=== PATIENT | male | born 1965 | race Caucasian/White ===

== ENCOUNTER 2023-03-15 13:49 | Inpatient (IN) ==
[2023-03-15 15:14] LABS: Basophils # (auto) 0.02 K/uL (0-0.2); Basophils % (auto) 0.3 %; Eosinophils # (auto) 0.32 K/uL (0-0.50); Eosinophils % (auto) 4.5 %; Hematocrit (blood only) 44.3 % (42.0-52.0); Hemoglobin 14.8 g/dl (14.0-18.0); Immature Granulocytes # (auto) 0.03 K/uL (0.01-0.20); Immature Granulocytes % (auto) 0.4 %; Lymphocytes # (auto) 1.66 K/uL (1.2-3.4); Lymphocytes % (auto) 23.1 %; Mean Corpuscular Hemoglobin 32.9 pg (25.0-34.0); Mean Corpuscular Hgb Conc 33.4 g/dL (32.0-36.0); Mean Corpuscular Volume 98.4 fL (80.0-100.0); Mean Platelet Volume 9.3 fL (9.4-12.4); Monocytes # (auto) 0.62 K/uL (0.11-0.59); Monocytes % (auto) 8.6 %; Neutrophils # (auto) 4.54 K/uL (1.40-6.50); Neutrophils % (auto) 63.1 %; Platelet Count 278 K/uL (130-400); RDW Coefficient of Variation 12.4 % (11.5-14.5); RDW Standard Deviation 44.6 fL (36.4-46.3); White Blood Count 7.19 K/ul (4.8-10.8)
[2023-03-15 15:19] LABS: Albumin Globulin Ratio 0.9 (0.9-2); Albumin Level 3.9 gm/dl (3.4-5.0); BUN Creatinine Ratio 10.8 (10-20); Bilirubin,Total 0.3 mg/dl (0.2-1.0); Creatinine Clr Calc Pharmacy 97.4 ml/min; Est GFR (African American) 93.5 ml/min; Est GFR (Non-African American) 80.6 ml/min; Globulin 4.3 gm/dl (2.5-4.0); Potassium 3.9 mmol/L (3.5-5.1); Total Protein 8.2 gm/dl (6.0-8.3)
--- NOTE | 2023-03-15 15:52 | Emergency Department Note ---
Impression & Plan Osteomyelitis of right foot, Cellulitis of right leg, Wound of right foot, Tobacco use disorder ED Provider Note NAME: JOHANA IBRAHIM AGE: 57 SEX: M : 1965 ARRIVES VIA: Walk-In INFORMANT: Patient, ED PROVIDER(S): Miguel Sanchez MD CHIEF COMPLAINT: Left foot infection, swelling, redness MEDICAL DECISION MAKING: Patient presents for left foot infection associated swelling and redness. The patient was noted to have maggots with in the intertriginous webspaces of the left foot. Patient does have maceration noted as well. Given this with his chronic left lower extremity swelling and redness do believe the patient would benefit from inpatient treatment. The patient's initial blood work is grossly unremarkable with a normal white count. The patient was treated with vancomycin and Zosyn and ordered a left foot x-ray. There do appear to be bony erosions noted on the foot x-ray. I did speak with the on-call hospital service Santa Minaya PA-C and the patient was admitted by Dr. Rudolph. I also did speak with on-call podiatry Dr. Garzon did evaluate the patient at the bedside. He did relate that one of the areas between the toes did probe to bone and he did send a wound culture. Prior /Outside records reviewed: None Differential diagnosis: Cellulitis, osteomyelitis, abscess, MRSA infection, DVT, necrotizing fasciitis, dermatitis, drug eruption, allergic reaction, as well as other pathologies. Diagnostics, as interpreted by me: ECG: Normal sinus rhythm, rate of 60, normal intervals normal axis no ST elevations. Cardiac monitoring: An order was placed for continuous cardiac monitoring. The monitor shows a rate of 67 with sinus rhythm. Patient was placed on pulse oximetry Medical decision rules: None Imaging studies: See below I did review the patient's plain x-ray of the left foot. This does appear to show erosive changes as well as fractures. Concerning for osteomyelitis HPI: Patient presents due to concern for left foot pain and associated swelling. The patient states that he has had this ongoing for about 1-1/2 months. The patient does have chronic left lower extremity cellulitis and redness which has been ongoing for approximate 10 years he states. The patient states that he has not had any recent antibiotics for his left lower extremity in some time. The patient does smoke tobacco but denies any alcohol or drug use. Patient does not believe that he is a diabetic. Patient denies any falls or trauma. The patient states that he was going to work and noticed that he had a cut a portion of his shoe off to accommodate his foot as it was continued to swell. Patient denies any chest pains or shortness of breath. No nausea vomiting or diarrhea PAST MEDICAL HISTORY: See Below PAST SURGICAL HISTORY: See Below SOCIAL HISTORY: See Below HOME MEDICATIONS: See Below ALLERGIES: See Below VITALS: See Below PHYSICAL EXAMINATION: GENERAL: NAD, wearing glasses, non-toxic. EYE EXAM: Normal conjunctiva. PERRL, no anisocoria and EOM's grossly intact w/o pain. Oropharynx: Poor dentition. NECK: Supple, no nuchal rigidity, no adenopathy, non-tender. No signs of meningismus. FROM of the neck with good chin to chest and neck extension. No stridor. LUNGS: Clear to auscultation. Normal chest wall mechanics. HEART: NSR, no MRG. ABDOMEN: Abdomen soft, non-tender, no masses, no rebound or guarding. BACK: No CVA TTP. SKIN: No rashes and no bruising. UPPER EXTREMITIES: Upper extremities are grossly normal. LOWER EXTREMITIES: Left lower extremity swelling and redness from the mid alex down with more significant swelling to the left foot, maggots noted within the intertriginous webspaces and associated maceration, no crepitus noted. NEURO EXAM: A&O x3, cranial nerves II-XII grossly intact, normal speech, moves all 4 extremities. Past Med/Surg History Medical History Alcohol use disorder Tobacco use disorder Uncontrolled hypertension Surgical History No significant past surgical history Family History Father Stroke Mother Breast cancer Social History Smoking Status: Current every day smoker Cigarettes Per Day: 1.5 ppd; Second Hand Exposure: No; Do You Dip or Chew Tobacco: No; Hx Alcohol Use: Yes Alcohol type: hard liquor Alcohol Intake Frequency Comment: 4-5 shots of rum daily Hx Substance Use: No Preferred Language: Bulgarian Communication Ability: Effective Newswriter Required: No Beliefs That Will Affect Care: None Current Living Situation: Alone Other Information That Helps Us Care for You: No Feels Safe at Home: Yes Safety Concerns: Feels Safe At This Time Assistive Devices: Glasses Allergies Allergies Allergy/AdvReac Type Severity Reaction Status Date / Time house dust Allergy Intermediate SNEEZING, Verified 03/15/23 15:57 CONGESTION Home Meds Home Medications Medication Instructions Recorded Confirmed acetaminophen 500 mg tablet 1,000 mg PO DIRECTED PRN Pain 03/15/23 03/15/23 (Tylenol Extra Strength) ibuprofen 200 mg tablet (Advil) 400 mg PO DIRECTED PRN Pain 03/15/23 03/15/23 Results & Data (ED) Vital Signs Vital Signs - 24 hr 03/15/23 13:53 03/15/23 16:20 03/15/23 17:00 Temperature 36.8 C Temperature Source Temporal Artery Scan Pulse Rate 85 60 Respiratory Rate 22 16 Respiratory Effort / Characteristics Non-Labored Spontaneous Respiratory Depth Normal Respiratory Pattern Regular Blood Pressure 175/97 H Blood Pressure [Right Arm] 155/94 H Blood Pressure Mean 123 Blood Pressure Mean [Right Arm] 114 Blood Pressure Position Sitting Pulse Oximetry 98 98 Oxygen Delivery Method Room Air Room Air Sepsis Recent Fever Within 48 Hours No Sepsis New/Unexplained Change in Mental Status No Sepsis Action Taken by Nursing No Action Required Home Medications Current Medication List: was personally reviewed by me Laboratory Data Attestation: I reviewed the patient's lab results. 03/15/23 14:37 03/15/23 14:37 Lab Results 03/15/23 03/15/23 03/15/23 Range/Units 14:37 14:37 14:37 WBC 7.19 (4.8-10.8) K/ul RBC 4.50 L (4.70-6.10) M/uL Hgb 14.8 (14.0-18.0) g/dl Hct 44.3 (42.0-52.0) % MCV 98.4 (80.0-100.0) fL MCH 32.9 (25.0-34.0) pg MCHC 33.4 (32.0-36.0) g/dL RDW Std Deviation 44.6 (36.4-46.3) fL RDW Coeff of Hillary 12.4 (11.5-14.5) % Plt Count 278 (130-400) K/uL MPV 9.3 L (9.4-12.4) fL Immature Gran % (Auto) 0.4 % Neut % (Auto) 63.1 % Lymph % (Auto) 23.1 % Kay % (Auto) 8.6 % Eos % (Auto) 4.5 % Baso % (Auto) 0.3 % Neut # (Auto) 4.54 (1.40-6.50) K/uL Lymph # (Auto) 1.66 (1.2-3.4) K/uL Kay # (Auto) 0.62 H (0.11-0.59) K/uL Eos # (Auto) 0.32 (0-0.50) K/uL Baso # (Auto) 0.02 (0-0.2) K/uL Immature Gran # (Auto) 0.03 (0.01-0.20) K/uL ESR (0-20) mm/hr Sodium 139 (136-145) mmol/L Potassium 3.9 (3.5-5.1) mmol/L Chloride 106 (98-107) mmol/L Carbon Dioxide 28 (21-32) mmol/L Anion Gap 5 (3-11) BUN 11 (6-23) mg/dl Creatinine 1.02 (0.6-1.4) mg/dl Est Cr Clr Drug Dosing 97.4 ml/min Est GFR ( Amer) 93.5 ml/min Est GFR (Non-Af Amer) 80.6 ml/min BUN/Creatinine Ratio 10.8 (10-20) Glucose 109 H (70-99(Fasting)) mg/dl Calcium 9.0 (8.6-10.3) mg/dl Total Bilirubin 0.3 (0.2-1.0) mg/dl AST 17 (13-39) U/L ALT 13 (7-52) U/L Alkaline Phosphatase 87 (34-104) U/L C-Reactive Protein 4.45 H (0-0.5) mg/dl Total Protein 8.2 (6.0-8.3) gm/dl Albumin 3.9 (3.4-5.0) gm/dl Globulin 4.3 H (2.5-4.0) gm/dl Albumin/Globulin Ratio 0.9 (0.9-2) Procalcitonin 0.06 (0-0.5) ng/ml SARS-CoV-2, RNA, NAAT (NEGATIVE) 03/15/23 03/15/23 Range/Units 14:37 17:00 WBC (4.8-10.8) K/ul RBC (4.70-6.10) M/uL Hgb (14.0-18.0) g/dl Hct (42.0-52.0) % MCV (80.0-100.0) fL MCH (25.0-34.0) pg MCHC (32.0-36.0) g/dL RDW Std Deviation (36.4-46.3) fL RDW Coeff of Hillary (11.5-14.5) % Plt Count (130-400) K/uL MPV (9.4-12.4) fL Immature Gran % (Auto) % Neut % (Auto) % Lymph % (Auto) % Kay % (Auto) % Eos % (Auto) % Baso % (Auto) % Neut # (Auto) (1.40-6.50) K/uL Lymph # (Auto) (1.2-3.4) K/uL Kay # (Auto) (0.11-0.59) K/uL Eos # (Auto) (0-0.50) K/uL Baso # (Auto) (0-0.2) K/uL Immature Gran # (Auto) (0.01-0.20) K/uL ESR 72 H (0-20) mm/hr Sodium (136-145) mmol/L Potassium (3.5-5.1) mmol/L Chloride (98-107) mmol/L Carbon Dioxide (21-32) mmol/L Anion Gap (3-11) BUN (6-23) mg/dl Creatinine (0.6-1.4) mg/dl Est Cr Clr Drug Dosing ml/min Est GFR ( Amer) ml/min Est GFR (Non-Af Amer) ml/min BUN/Creatinine Ratio (10-20) Glucose (70-99(Fasting)) mg/dl Calcium (8.6-10.3) mg/dl Total Bilirubin (0.2-1.0) mg/dl AST (13-39) U/L ALT (7-52) U/L Alkaline Phosphatase (34-104) U/L C-Reactive Protein (0-0.5) mg/dl Total Protein (6.0-8.3) gm/dl Albumin (3.4-5.0) gm/dl Globulin (2.5-4.0) gm/dl Albumin/Globulin Ratio (0.9-2) Procalcitonin (0-0.5) ng/ml SARS-CoV-2, RNA, NAAT NEGATIVE (NEGATIVE) Administered Medications Amlodipine Besylate (Amlodipine Besylate 5 Mg Tab) 5 mg PO HS [facility] Stop: 04/14/23 21:39 Last Admin: 03/15/23 22:09 Dose: 5 mg Documented By: LOIDA Folic Acid (Folic Acid 1 Mg Tab) 1 [facility] Stop: 04/15/23 08:59 Last Admin: 03/16/23 07:53 Dose: 1 mg Documented By: NICHOLE Piperacillin Sod/Tazobactam (Sod 4.5 gm/ Dextrose) 120 mls @ 30 mls/hr IV Q8H [facility]; Protocol Stop: 03/23/23 01:59 Last Infusion: 03/16/23 08:40 Dose: 0 mls/hr Documented By: Admin: 03/16/23 04:01 Dose: 30 mls/hr Documented By: LOIDA Vancomycin HCl 1,500 mg/ (Sodium Chloride) 530 mls @ 200 mls/hr IV Q12H [facility] Stop: 03/17/23 17:30 Last Admin: 03/16/23 09:25 Dose: 200 mls/hr Documented By: NICHOLE Miscellaneous (Remove Nicoderm Patch) 1 each N/A DAILY@0859 [facility] Stop: 04/15/23 08:58 Last Admin: 03/16/23 07:50 Dose: 1 each Documented By: NICHOLE Nicotine (Nicotine 21 Mg/24 Hr Tdsy) 21 mg TD [facility] Stop: 04/15/23 08:59 Last Admin: 03/16/23 07:51 Dose: 21 mg Documented By: NICHOLE Thiamine HCl (Thiamine Hcl 100 Mg Tab) 100 mg PO QAJIM [facility] Stop: 04/15/23 08:59 Last Admin: 03/16/23 07:53 Dose: 100 mg Documented By: NICHOLE Discontinued Medications Gabapentin (Gabapentin 600 Mg Tab) 600 mg PO Q6H [facility] Stop: 03/16/23 06:01 Last Admin: 03/16/23 05:00 Dose: 600 mg Documented By: Admin: 03/16/23 00:19 Dose: 600 mg Documented By: LOIDA Gabapentin (Gabapentin 600 Mg Tab) 1,200 mg PO NOW STA Stop: 03/15/23 17:02 Last Admin: 03/15/23 17:57 Dose: 1,200 mg Documented By: MAXIMUS Gadobutrol (Gadobutrol 65ml Vial) 11 ml IV ONCE ONE Stop: 03/16/23 00:01 Last Admin: 03/16/23 00:01 Dose: 11 ml Documented By: REE Vancomycin HCl 2,750 mg/ (Sodium Chloride) 555 mls @ 200 mls/hr IV NOW ONE Stop: 03/15/23 18:55 Last Admin: 03/15/23 17:26 Dose: 200 mls/hr Documented By: MAXIMUS Piperacillin Sod/Tazobactam (Sod 4.5 gm/ Dextrose) 120 mls @ 240 mls/hr IV NOW ONE; Protocol Stop: 03/15/23 21:14 Last Infusion: 03/15/23 22:04 Dose: 0 mls/hr Documented By: Admin: 03/15/23 21:33 Dose: 240 mls/hr Documented By: LOIDA Nicotine (Nicotine 21 Mg/24 Hr Tdsy) 21 mg TD ONE STA Stop: 03/15/23 17:01 Last Admin: 03/15/23 17:57 Dose: 21 mg Documented By: MAXIMUS Imaging Data Radiologist's Impression: Foot MRI 03/15/23 17:02 Exam(s): MRI LEFT FOOT W/WO Contrast IV Amt: 11cc gadavist EXAM: MR Left Lower Extremity Without and With Intravenous Contrast, Foot CLINICAL HISTORY: Reason for exam: eval for osteomyelitis. TECHNIQUE: Multiplanar magnetic resonance images of the left foot without and with intravenous contrast. CONTRAST: Patient received 11cc gadavist of IV contrast COMPARISON: No relevant prior studies available. FINDINGS: Soft tissue ulcer/cellulitis involving the second toe. Severe osteomyelitis of the entire second toe, with erosive changes throughout the entire toe including the metatarsal head which is fragmented. Soft tissue ulcer/cellulitis involving the third toe. Severe osteomyelitis of the entire third toe, with erosive changes throughout the entire toe including resorption of the third metatarsal head. Edema extends into the third metatarsal diaphysis. Soft tissue ulcer/cellulitis involving the fifth toe. Severe osteomyelitis of the fifth toe, with erosive changes throughout the middle and distal phalanx. Severe degenerative changes of the first MTP. Impression: Severe osteomyelitis of the second, third, and fifth rays, as described. Electronically signed by: Jean Carlos Lopez MD 03/16/23 00:40 AM Foot X-Ray 03/15/23 16:16 LEFT FOOT 3 VIEWS CLINICAL HISTORY: Cellulitis. Swelling. FINDINGS: 3 views of the left foot are obtained. No prior studies are available for comparison at the time of dictation. The skeletal structures are osteopenic. There is an acute appearing displaced fracture through the distal shaft of the fifth proximal phalanx. Erosive destructive change is seen at the third metatarsophalangeal joint. This is highly suspicious for osteomyelitis. Erosive permeative changes also seen of the fifth proximal phalanx. There is age- indeterminate erosive change involving the tuft of the second distal phalanx and the base of the second proximal phalanx. There are numerous tiny bony fragments throughout the second and third toes. Advanced osteoarthritic changes seen at the first metatarsophalangeal joint. Milder degenerative changes seen throughout the midfoot. There is a large plantar heel spur. Diffuse soft tissue edema is noted throughout the forefoot. There are tiny foci of gas within the fifth toe. IMPRESSION: 1. There is an acute appearing displaced fracture through the head of the fifth proximal phalanx. This may be pathologic. 2. Erosive change at the third metatarsophalangeal joint as well as permeative change in the fifth proximal phalanx are highly suspicious for osteomyelitis. There is age indeterminate erosive change involving the tuft of the second distal phalanx and the base of the second proximal phalanx. Correlate with any prior outside imaging studies. 3. Diffuse soft tissue edema throughout the foot suggests cellulitis. Correlate clinically. 4. Degenerative change and large plantar heel spur as above. Dictated: 03/15/2023 6:17 PM Transcribed: 03/15/2023 6:33 PM Lana [id number] BRITTANEY_Candido [id number] Electronically signed by: Humberto Huber M.D. 03/15/2023 7:06 PM Foot MRI 03/15/23 17:02 Exam(s): MRI LEFT FOOT W/WO Contrast IV Amt: 11cc gadavist EXAM: MR Left Lower Extremity Without and With Intravenous Contrast, Foot CLINICAL HISTORY: Reason for exam: eval for osteomyelitis. TECHNIQUE: Multiplanar magnetic resonance images of the left foot without and with intravenous contrast. CONTRAST: Patient received 11cc gadavist of IV contrast COMPARISON: No relevant prior studies available. FINDINGS: Soft tissue ulcer/cellulitis involving the second toe. Severe osteomyelitis of the entire second toe, with erosive changes throughout the entire toe including the metatarsal head which is fragmented. Soft tissue ulcer/cellulitis involving the third toe. Severe osteomyelitis of the entire third toe, with erosive changes throughout the entire toe including resorption of the third metatarsal head. Edema extends into the third metatarsal diaphysis. Soft tissue ulcer/cellulitis involving the fifth toe. Severe osteomyelitis of the fifth toe, with erosive changes throughout the middle and distal phalanx. Severe degenerative changes of the first MTP. Impression: Severe osteomyelitis of the second, third, and fifth rays, as described. Electronically signed by: Jean Carlos Lopez MD 03/16/23 00:40 AM Venous Doppler Study 03/15/23 17:02 ULTRASOUND LEFT LOWER EXTREMITY VENOUS CLINICAL HISTORY: Left leg swelling and erythema. COMPARISON STUDY: Left lower extremity venous ultrasound dated 03/15/2013. TECHNIQUE: Real-time, grayscale, and color Doppler sonography of the deep veins of the left lower extremity was performed from the inguinal crease to the calf. Compression and augmentation were utilized. FINDINGS: There is no sonographic evidence of deep venous thrombosis identified in the left lower extremity. The common femoral, superficial femoral, and popliteal veins are patent and normally compressible. The greater saphenous vein and the profunda femoris vein at the junction with the common femoral vein are clear. The visualized calf veins are patent. Enlarged left inguinal lymph nodes are reactive. IMPRESSION: 1 There is no sonographic evidence of deep venous thrombosis identified in the left lower extremity. 2. Enlarged left inguinal lymph nodes are likely reactive. Correlate clinically. ACT 112: Negative or not required by law. Electronically signed by: Humberto Huber M.D. 03/15/2023 7:30 PM Discharge Plan Visit Data Chief Complaint: Foot Injury/Pain Stated Complaint: L FOOT PAIN ED Provider: Miguel Sanchez Discharge Problem: Osteomyelitis of right foot, Cellulitis of right leg, Wound of right foot, Tobacco use disorder Patient Disposition: Admitted As Inpatient Discharge Instructions Interventions: ED Discharge Assessment Last Done: 03/15/23 20:07
[2023-03-15] MEDS ORDERED: VANCOMYCIN CONSULT ACTIVE PRN (16:09)
[2023-03-15] MEDS ORDERED: VANCOMYCIN HCL 2,750 MG in SODIUM CHLORIDE 0.9% 500 ML IV ONE (16:09)
--- NOTE | 2023-03-15 16:48 | History & Physical Report ---
Date of Service March 15, 2023 Assessment & Plan (1) Wound of left foot: (2) Cellulitis of left foot: Plan: This is a 57yo M with a PMH of uncontrolled HTN and no other known medical problems who presents with L foot wound and LLE cellulitis. Ongoing RLE cellulitis with worsening pain and swelling to R foot wound over past 2 months Patient noncompliant patient, does not follow with a PCP or take scheduled medications Afebrile, no leukocytosis, ESR 72, CRP 4.45, procal negative Foot XR with 1. There is an acute appearing displaced fracture through the head of the fifth proximal phalanx. This may be pathologic. 2. Erosive change at the third metatarsophalangeal joint as well as permeative change in the fifth proximal phalanx are highly suspicious for osteomyelitis. 3. Diffuse soft tissue edema throughout the foot suggests cellulitis. Correlate clinically. 4. Degenerative change and large plantar heel spur as above. Evaluated by Dr. Garzon and discussed - feels exam is consistent with osteomyelitis. Recommends MRI foot RLE edema noted as well - obtaining venous doppler to rule out DVT Continue broad spectrum abx with vanco/zosyn Will add ECG and CXR for pre-op evaluation NPO @ [facility] (3) Tobacco use disorder: Plan: Smokes 1 ppd. Nicotine patch ordered. Smoking cessation recommended (4) Alcohol use disorder: Plan: Endorses 4-5 shots of rum and a few beers nightly, last drink 1800 yesterday Denies h/o withdrawal but drinks every day AWSS withdrawal precautions with gabapentin protocol and PRN IV ativan Thiamine and folic acid supplementation DVT Ppx: SCDs in setting of likely OR Code status: FULL PCP: does not follow with a PCP Dispo: Admitted to [facility] Patient seen in collaboration with Dr. Conte. Please see addendum. I spent a total of 75 minutes coordinating, documenting, and providing care for this patient excluding time spent in the performance of separately billed services. History of Present Illness Chief Complaint: leg wound Primary Care Provider: NO PCP This is a 57yo M with a PMH of uncontrolled HTN and no other known medical problems who presents with L foot wound. 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 Had to cut a hole in his Right shoe because his feet were too swollen to fit. Denies any fall or bites. Has become more painful over past few days. Coworkers directed him to ED for further evaluation. Denies any known history of blood clots in legs. Denies any known history of CVA, DM II. Does not take any home medications and is not established with a PCP. Smokes 1 ppd and takes 4-5 shots of rum and a few beers daily. Allergies Allergy/AdvReac Type Severity Reaction Status Date / Time house dust Allergy Intermediate SNEEZING, Verified 03/15/23 15:57 CONGESTION Home Medications Medication Instructions Recorded Confirmed Type acetaminophen 500 mg tablet 1,000 mg PO DIRECTED PRN Pain 03/15/23 03/15/23 History (Tylenol Extra Strength) ibuprofen 200 mg tablet (Advil) 400 mg PO DIRECTED PRN Pain 03/15/23 03/15/23 History Past Med/Surg History Medical History Alcohol use disorder Tobacco use disorder Uncontrolled hypertension Surgical History No significant past surgical history Family History Father Stroke Mother Breast cancer Social History Smoking Status: Current every day smoker Cigarettes Per Day: 1.5 ppd; Second Hand Exposure: No; Do You Dip or Chew Tobacco: No; Hx Alcohol Use: Yes Alcohol type: hard liquor Alcohol Intake Frequency Comment: 4-5 shots of rum daily Hx Substance Use: No Preferred Language: Moldovan Communication Ability: Effective Waste Reclaimer Required: No Beliefs That Will Affect Care: None Current Living Situation: Alone Other Information That Helps Us Care for You: No Feels Safe at Home: Yes Safety Concerns: Feels Safe At This Time Assistive Devices: None Review of Systems Review of Systems: At least ten systems reviewed and negative except as noted in the HPI. Physical Exam Physical Exam: Please see Dr. Conte's addendum for physical exam. Results & Data Results & Data Vital Signs (Past 12 Hours) Vital Signs Temp Pulse Resp BP Pulse Ox O2 Del Method 03/15/23 16:20 60 03/15/23 13:53 36.8 C 85 22 175/97 H 98 Room Air Laboratory Results Short CBC 03/15/23 Range/Units 14:37 WBC 7.19 (4.8-10.8) K/ul Hgb 14.8 (14.0-18.0) g/dl Hct 44.3 (42.0-52.0) % Plt Count 278 (130-400) K/uL BMP 03/15/23 14:37 Sodium 139 Potassium 3.9 Chloride 106 Carbon Dioxide 28 BUN 11 Creatinine 1.02 Glucose 109 H Calcium 9.0 Liver Function 03/15/23 Range/Units 14:37 Total Bilirubin 0.3 (0.2-1.0) mg/dl AST 17 (13-39) U/L ALT 13 (7-52) U/L Alkaline Phosphatase 87 (34-104) U/L Albumin 3.9 (3.4-5.0) gm/dl Diagnostic Findings Foot X-Ray 03/15/23 16:16 LEFT FOOT 3 VIEWS CLINICAL HISTORY: Cellulitis. Swelling. FINDINGS: 3 views of the left foot are obtained. No prior studies are available for comparison at the time of dictation. The skeletal structures are osteopenic. There is an acute appearing displaced fracture through the distal shaft of the fifth proximal phalanx. Erosive destructive change is seen at the third metatarsophalangeal joint. This is highly suspicious for osteomyelitis. Erosive permeative changes also seen of the fifth proximal phalanx. There is age- indeterminate erosive change involving the tuft of the second distal phalanx and the base of the second proximal phalanx. There are numerous tiny bony fragments throughout the second and third toes. Advanced osteoarthritic changes seen at the first metatarsophalangeal joint. Milder degenerative changes seen throughout the midfoot. There is a large plantar heel spur. Diffuse soft tissue edema is noted throughout the forefoot. There are tiny foci of gas within the fifth toe. IMPRESSION: 1. There is an acute appearing displaced fracture through the head of the fifth proximal phalanx. This may be pathologic. 2. Erosive change at the third metatarsophalangeal joint as well as permeative change in the fifth proximal phalanx are highly suspicious for osteomyelitis. There is age indeterminate erosive change involving the tuft of the second distal phalanx and the base of the second proximal phalanx. Correlate with any prior outside imaging studies. 3. Diffuse soft tissue edema throughout the foot suggests cellulitis. Correlate clinically. 4. Degenerative change and large plantar heel spur as above. Dictated: 03/15/2023 6:17 PM Transcribed: 03/15/2023 6:33 PM Lana [id number] BRITTANEY_Candido [id number] Electronically signed by: Humberto Huber M.D. 03/15/2023 7:06 PM Supervising Physician Co-Signing Physician Notes Pt is a 57 y/o M with hx of HTN (non compliance with medication), Alcohol abuse, Chronic L leg swelling admitted for L foot cellulitis and 5th toe ulcer. PE: NAD, well developed Lungs: CTA, no wheezing or crackles Cardiac: Normal S1/S2, no murmur Abd: ND, NT, soft MSK: L leg swelling and erythema, severe L foot swelling with 5th toe ulcer (unable to stage) Psych: AAOx3, normal affect A/P: L foot cellulitis with toe ulcer: -ortho consulted -Will obtain MRI of the foot - Doppler of the LLE - will start pt on vanc and zosyn -BCx sent and will send wound culture -will obtain A1C tomorrow - no hx of HI or CVA HTN: -currently not on any meds - BP wnl for now - will continue to monitor Agree with A/P by Santa Minaya PA-C
[2023-03-15] MEDS ORDERED: GABAPENTIN 1200MG ALCOHOL WITHDRAWAL LOAD PO STA (16:59)
[2023-03-15] MEDS ORDERED: LORazepam 2 MG/1 ML VIAL IV PRN ×2 (16:59)
[2023-03-15] MEDS ORDERED: Ativan IV Alcohol Withdrawal--Active Protocol IV PRN (16:59)
[2023-03-15] MEDS ORDERED: NICOTINE 21 MG/24 HR TDSY TD STA (17:00)
[2023-03-15] MEDS ORDERED: GABAPENTIN 600 MG TAB PO STA (17:01)
[2023-03-15 17:05] LABS: C Reactive Protein 4.45 mg/dl (0-0.5)
[2023-03-15] MEDS ORDERED: PIPERACILLIN/TAZOBACTAM 4.5 GM/120 ML BAG IV STA (18:15)
--- NOTE | 2023-03-15 19:07 | XRay Report ---
LEFT FOOT 3 VIEWS CLINICAL HISTORY: Cellulitis. Swelling. FINDINGS: 3 views of the left foot are obtained. No prior studies are available for comparison at the time of dictation. The skeletal structures are osteopenic. There is an acute appearing displaced fra cture through the distal shaft of the fifth proximal phalanx. Erosive destructive change is seen at t he third metatarsophalangeal joint. This is highly suspicious for osteomyelitis. Erosive permeative c hanges also seen of the fifth proximal phalanx. There is age-indeterminate erosive change involving t he tuft of the second distal phalanx and the base of the second proximal phalanx. There are numerous tiny bony fragments throughout the second and third toes. Advanced osteoarthritic changes seen at the first metatarsophalangeal joint. Milder degenerative changes seen throughout the midfoot. There is a large plantar heel spur. Diffuse soft tissue edema is noted throughout the forefoot. There are tiny foci of gas within the fifth toe. IMPRESSION: 1. There is an acute appearing displaced fracture through the head of the fifth proximal phalanx. Thi s may be pathologic. 2. Erosive change at the third metatarsophalangeal joint as well as permeative change in the fifth pr oximal phalanx are highly suspicious for osteomyelitis. There is age indeterminate erosive change inv olving the tuft of the second distal phalanx and the base of the second proximal phalanx. Correlate w ith any prior outside imaging studies. 3. Diffuse soft tissue edema throughout the foot suggests cellulitis. Correlate clinically. 4. Degenerative change and large plantar heel spur as above. Dictated: 03/15/2023 6:17 PM Transcribed: 03/15/2023 6:33 PM Lana [id number] Aracelis [id number] Electronically signed by: Humberto Huber M.D. 03/15/2023 7:06 PM
--- NOTE | 2023-03-15 19:31 | Ultrasound Report ---
ULTRASOUND LEFT LOWER EXTREMITY VENOUS CLINICAL HISTORY: Left leg swelling and erythema. COMPARISON STUDY: Left lower extremity venous ultrasound dated 03/15/2013. TECHNIQUE: Real-time, grayscale, and color Doppler sonography of the deep veins of the left lower ext remity was performed from the inguinal crease to the calf. Compression and augmentation were utilized . FINDINGS: There is no sonographic evidence of deep venous thrombosis identified in the left lower ext remity. The common femoral, superficial femoral, and popliteal veins are patent and normally compress ible. The greater saphenous vein and the profunda femoris vein at the junction with the common femora l vein are clear. The visualized calf veins are patent. Enlarged left inguinal lymph nodes are reacti ve. IMPRESSION: 1 There is no sonographic evidence of deep venous thrombosis identified in the left lower extremity. 2. Enlarged left inguinal lymph nodes are likely reactive. Correlate clinically. ACT 112: Negative or not required by law. Electronically signed by: Humberto Huber M.D. 03/15/2023 7:30 PM
[2023-03-15] MEDS ORDERED: PIPERACILLIN/TAZOBACTAM 4.5 GM (over 30 mins) IV ONE (20:45)
--- NOTE | 2023-03-15 20:53 | Orthopedic Consultation ---
Date of Consultation March 15, 2023 Assessment & Plan (1) Wound of right foot: Patient seen, evaluated, and treated. Deep wound culture taken of right foot ulcer which probes to bone. Reviewed x-ray and x-ray findings. (+) OM, no gas noted. Awaiting MRI. Patient will require surgical care and will discuss with Patient after MRI results obtained. Thank you for allowing me to participate in the care of this Patient. (2) Cellulitis of right leg: (3) Osteomyelitis of right foot: History of Present Illness Attending Physician: Victorino Conte MD History of Present Illness Patient is a 57 year old male seen at bedside in [facility] ED bed C10 for left foot wound with reported maggots. Patient has a past medical history of uncontrolled HTN with no other reported medical problems. Patient states he has experienced chronic swelling and cellulitis of left leg for years and worsening swelling of L foot for 2 months. Patient states he had to cut a hole in his Right shoe because his feet were too swollen to fit. He notes worsening pain over past few days and coworkers urged him to go to ED for further evaluation. Patient smokes 1 ppd and takes 4-5 shots of rum and a few beers daily. Allergies Allergy/AdvReac Type Severity Reaction Status Date / Time house dust Allergy Intermediate SNEEZING, Verified 03/15/23 15:57 CONGESTION Home Medications Medication Instructions Recorded Confirmed Type acetaminophen 500 mg tablet 1,000 mg PO DIRECTED PRN Pain 03/15/23 03/15/23 History (Tylenol Extra Strength) ibuprofen 200 mg tablet (Advil) 400 mg PO DIRECTED PRN Pain 03/15/23 03/15/23 History Patient History Medical History Alcohol use disorder Tobacco use disorder Uncontrolled hypertension Surgical History No significant past surgical history Family History Father Stroke Mother Breast cancer Social History Smoking Status: Current every day smoker Cigarettes Per Day: 1.5 ppd; Second Hand Exposure: No; Do You Dip or Chew Tobacco: No; Hx Alcohol Use: Yes Alcohol type: beer and hard liquor Alcohol Intake Frequency Comment: 4-5 shots of rum daily Hx Substance Use: No Preferred Language: Malian Communication Ability: Effective Hvac Operations Technician Required: No Beliefs That Will Affect Care: None Current Living Situation: Alone Feels Safe at Home: Yes Assistive Devices: Glasses Review of Systems Review of Systems: All systems reviewed & are unremarkable except as noted in Subjective Physical Exam Constitutional: cooperative and comfortable Eyes: normal visual waterman by confrontation Neck: normal visual inspection Respiratory: normal respiratory effort Cardiovascular: Rate/Rhythm: regular rate and regular rhythm Skin: + ulcer (Interdigital fourth digit wound probes to fifth phalanx bone), + erythema (Left foot and leg), + skin hypertrophy and + lichenification Neurologic: moves all extremities (Absent epicritic sensation) Psychiatric: Orientation: alert and oriented x 3 Lymphatic: + lymphedema (Left lower extremity) Results & Data Vital Signs (Past 12 Hours) Vital Signs Temp Pulse Pulse Resp BP BP Pulse Ox 03/15/23 19:39 61 18 127/84 97 03/15/23 17:00 16 155/94 H 98 03/15/23 16:20 60 03/15/23 13:53 36.8 C 85 22 175/97 H 98 O2 Del Method 03/15/23 19:39 Room Air 03/15/23 17:00 Room Air 03/15/23 16:20 03/15/23 13:53 Room Air Diagnostic Findings LEFT FOOT 3 VIEWS CLINICAL HISTORY: Cellulitis. Swelling. FINDINGS: 3 views of the left foot are obtained. No prior studies are available for comparison at the time of dictation. The skeletal structures are osteopenic. There is an acute appearing displaced fracture through the distal shaft of the fifth proximal phalanx. Erosive destructive change is seen at the third metatarsophalangeal joint. This is highly suspicious for osteomyelitis. Erosive permeative changes also seen of the fifth proximal phalanx. There is age- indeterminate erosive change involving the tuft of the second distal phalanx and the base of the second proximal phalanx. There are numerous tiny bony fragments throughout the second and third toes. Advanced osteoarthritic changes seen at the first metatarsophalangeal joint. Milder degenerative changes seen throughout the midfoot. There is a large plantar heel spur. Diffuse soft tissue edema is noted throughout the forefoot. There are tiny foci of gas within the fifth toe. IMPRESSION: 1. There is an acute appearing displaced fracture through the head of the fifth proximal phalanx. This may be pathologic. 2. Erosive change at the third metatarsophalangeal joint as well as permeative change in the fifth proximal phalanx are highly suspicious for osteomyelitis. There is age indeterminate erosive change involving the tuft of the second distal phalanx and the base of the second proximal phalanx. Correlate with any prior outside imaging studies. 3. Diffuse soft tissue edema throughout the foot suggests cellulitis. Correlate clinically. 4. Degenerative change and large plantar heel spur as above. Dictated: 03/15/2023 6:17 PM Transcribed: 03/15/2023 6:33 PM Lana [id number] BRITTANEY_Candido [id number] Electronically signed by: Humberto Huber M.D. 03/15/2023 7:06 PM
[2023-03-15] MEDS ORDERED: ONDANSETRON INJ 2 MG/ML 2 ML VIAL IV PRN (21:09)
[2023-03-15] MEDS ORDERED: POLYETHYLENE (MIRALAX) 17 GM PACK PO PRN (21:09)
[2023-03-15] MEDS ORDERED: ACETAMINOPHEN 325 MG TAB PO PRN (21:09)
[2023-03-15] MEDS: amLODIPine BESYLATE 5 MG TAB PO SCH (22:09)
[2023-03-16] MEDS ORDERED: GADOBUTROL 65ML VIAL IV ONE
[2023-03-16] MEDS: GABAPENTIN 600 MG TAB PO SCH ×4 (00:19→21:00)
--- NOTE | 2023-03-16 00:41 | Magnetic Resonance Report ---
Exam(s): MRI LEFT FOOT W/WO Contrast IV Amt: 11cc gadavist EXAM: MR Left Lower Extremity Without and With Intravenous Contrast, Foot CLINICAL HISTORY: Reason for exam: eval for osteomyelitis. TECHNIQUE: Multiplanar magnetic resonance images of the left foot without and with intravenous contrast. CONTRAST: Patient received 11cc gadavist of IV contrast COMPARISON: No relevant prior studies available. FINDINGS: Soft tissue ulcer/cellulitis involving the second toe. Severe osteomyelitis of the entire second toe, with erosive changes throughout the entire toe including the metatarsal head which is fragmented. Soft tissue ulcer/cellulitis involving the third toe. Severe osteomyelitis of the entire third toe, with erosive changes throughout the entire toe including resorption of the third metatarsal head. Edema extends into the third metatarsal diaphysis. Soft tissue ulcer/cellulitis involving the fifth toe. Severe osteomyelitis of the fifth toe, with erosive changes throughout the middle and distal phalanx. Severe degenerative changes of the first MTP. Impression: Severe osteomyelitis of the second, third, and fifth rays, as described. Electronically signed by: Jean Carlos Lopez MD 03/16/23 00:40 AM
[2023-03-16] MEDS: PIPERACILLIN/TAZOBACTAM 4.5 GM in DEXTROSE 5% 100 ML IV SCH ×3 (04:01→20:13)
[2023-03-16 06:59] LABS: Hematocrit (blood only) 41.3 % (42.0-52.0); Hemoglobin 13.9 g/dl (14.0-18.0); Mean Corpuscular Hemoglobin 33.1 pg (25.0-34.0); Mean Corpuscular Hgb Conc 33.7 g/dL (32.0-36.0); Mean Corpuscular Volume 98.3 fL (80.0-100.0); Mean Platelet Volume 9.4 fL (9.4-12.4); Platelet Count 224 K/uL (130-400); RDW Coefficient of Variation 12.2 % (11.5-14.5); RDW Standard Deviation 44.6 fL (36.4-46.3); White Blood Count 6.03 K/ul (4.8-10.8)
[2023-03-16 07:30] LABS: BUN Creatinine Ratio 12.6 (10-20); Calcium 8.5 mg/dl (8.6-10.3); Creatinine Clr Calc Pharmacy 114.2 ml/min; Est GFR (African American) 110.3 ml/min; Est GFR (Non-African American) 95.1 ml/min; Potassium 3.9 mmol/L (3.5-5.1)
[2023-03-16] MEDS: NICOTINE 21 MG/24 HR TDSY TD SCH (07:51)
--- NOTE | 2023-03-16 07:51 | XRay Report ---
XR chest 1V portable CLINICAL HISTORY: admission, possible preop COMPARISON STUDY: No previous studies for comparison. FINDINGS: Lung volumes are normal. Lungs are clear. There is no pneumothorax or pleural effusion. The re is borderline cardiomegaly. Mediastinal contours are normal. There is no evidence for pulmonary ed john. IMPRESSION: No acute cardiopulmonary findings. ACT 112: Negative or not required by law. Electronically signed by: Calvin Barahona M.D. 03/16/2023 7:50 AM
[2023-03-16] MEDS: THIAMINE HCL 100 MG TAB PO SCH (07:53)
[2023-03-16] MEDS: FOLIC ACID 1 MG TAB PO SCH (07:53)
[2023-03-16 08:06] LABS: Estimated Average Glucose 111 mg/dl; Hemoglobin A1C 5.5 % (4.5-5.6)
[2023-03-16] MEDS: VANCOMYCIN HCL 1,500 MG in SODIUM CHLORIDE 0.9% 500 ML IV SCH ×2 (09:25→20:13)
--- NOTE | 2023-03-16 13:24 | Hospitalist Progress Note ---
Date of Service March 16, 2023 Assessment & Plan (1) Osteomyelitis of left foot: Plan: This is a 57yo M with a PMH of uncontrolled HTN and no other known medical problems who presents with L foot wound and LLE cellulitis. Ongoing LLE cellulitis with worsening pain and swelling to L foot wound over past 2 months Patient noncompliant patient, does not follow with a PCP or take scheduled medications Afebrile, no leukocytosis, ESR 72, CRP 4.45, procal negative Left Foot XR with 1. There is an acute appearing displaced fracture through the head of the fifth proximal phalanx. This may be pathologic. 2. Erosive change at the third metatarsophalangeal joint as well as permeative change in the fifth proximal phalanx are highly suspicious for osteomyelitis. 3. Diffuse soft tissue edema throughout the foot suggests cellulitis. Correlate clinically. 4. Degenerative change and large plantar heel spur as above. Evaluated by Dr. Garzon and discussed - feels exam is consistent with osteomyelitis. Recommends MRI foot MRI foot reviewed; severe osteomyelitis of second, third and fifth rays as described. Patient currently on vancomycin and Zosyn. Patient to undergo surgery by Dr. Garzon from podiatry today. (2) Tobacco use disorder: Plan: Smokes 1 ppd. Nicotine patch ordered. Smoking cessation recommended (3) Alcohol use disorder: Plan: Endorses 4-5 shots of rum and a few beers nightly, last drink 1800 a day prior to admission Denies h/o withdrawal but drinks every day AWSS withdrawal precautions with gabapentin protocol and PRN IV ativan Thiamine and folic acid supplementation DVT Ppx: SCDs in setting of likely OR Code status: FULL PCP: does not follow with a PCP Dispo: Admitted to [facility] tele Time spent evaluating patient, direct bedside care, chart review, placing orders, interpretation of diagnostic studies, discussion with consultants, patient, and family members, as well as other required patient management activities is 60 minutes. Please note the above document was generated using voice recognition software. It may contain grammatical, syntax or spelling errors. Any formal questions or concerns about the content, text or information contained within the body of this dictation should be directly addressed to the provider for clarification Admission and Anticipated Discharge Date Admission Date: March 15, 2023 Subjective Patient seen and examined at bedside. He is comfortable lying on the bed; not in distress. No fever or chills overnight. Review of Systems Review of Systems: All systems reviewed & are unremarkable except as noted in Subjective Physical Exam Physical Exam: Constitutional: WD/WN, vitals as above, NAD, sitting up in bed, pleasant, conversing easily Respiratory: normal respiratory effort, lungs clear to auscultation, no wheeze, rales, rhonchi. Normal insp/exp effort, no accessory muscle use Cardiovascular: RRR, no murmur, no edema Vessels: no JVD or carotid bruit Chest: normal inspection of chest Abdomen: normal bowel sounds, soft, nontender, no hepatosplenomegaly Musculoskeletal: Swelling present on the dorsal aspect of left foot with surrounding erythema, swelling and Anderson smelling discharge. 5th toe ulcer present Skin: no rashes, warm and dry normal turgor Neurologic: PERRL, EOMI, accommodation nl, no face palsy, no dysarthria CN's II- XI intact bilaterally and moves all extremities Psychiatric: A+Ox3, euthymic affect Results & Data Results & Data Vital Signs (Past 12 Hours) Vital Signs Temp Pulse Pulse Resp BP BP Pulse Ox 03/16/23 11:11 36.7 C 59 L 16 135/94 98 03/16/23 07:00 78 03/16/23 07:51 36.6 C 61 16 146/99 H 98 03/16/23 02:23 36.5 C 56 L 18 124/75 96 O2 Del Method 03/16/23 11:11 Room Air 03/16/23 07:00 03/16/23 07:51 Room Air 03/16/23 02:23 Room Air Laboratory Results Laboratory Results WBC 6.03 K/ul (4.8-10.8) 03/16/23 06:11 RBC 4.20 M/uL (4.70-6.10) L 03/16/23 06:11 Hgb 13.9 g/dl (14.0-18.0) L 03/16/23 06:11 Hct 41.3 % (42.0-52.0) L 03/16/23 06:11 MCV 98.3 fL (80.0-100.0) 03/16/23 06:11 MCH 33.1 pg (25.0-34.0) 03/16/23 06:11 MCHC 33.7 g/dL (32.0-36.0) 03/16/23 06:11 RDW Std Deviation 44.6 fL (36.4-46.3) 03/16/23 06:11 RDW Coeff of Hillary 12.2 % (11.5-14.5) 03/16/23 06:11 Plt Count 224 K/uL (130-400) 03/16/23 06:11 MPV 9.4 fL (9.4-12.4) 03/16/23 06:11 Immature Gran % (Auto) 0.4 % 03/15/23 14:37 Neut % (Auto) 63.1 % 03/15/23 14:37 Lymph % (Auto) 23.1 % 03/15/23 14:37 Mckinley % (Auto) 8.6 % 03/15/23 14:37 Eos % (Auto) 4.5 % 03/15/23 14:37 Baso % (Auto) 0.3 % 03/15/23 14:37 Neut # (Auto) 4.54 K/uL (1.40-6.50) 03/15/23 14:37 Lymph # (Auto) 1.66 K/uL (1.2-3.4) 03/15/23 14:37 Mckinley # (Auto) 0.62 K/uL (0.11-0.59) H 03/15/23 14:37 Eos # (Auto) 0.32 K/uL (0-0.50) 03/15/23 14:37 Baso # (Auto) 0.02 K/uL (0-0.2) 03/15/23 14:37 Immature Gran # (Auto) 0.03 K/uL (0.01-0.20) 03/15/23 14:37 ESR 72 mm/hr (0-20) H 03/15/23 14:37 Sodium 140 mmol/L (136-145) 03/16/23 06:11 Potassium 3.9 mmol/L (3.5-5.1) 03/16/23 06:11 Chloride 108 mmol/L (98-107) H 03/16/23 06:11 Carbon Dioxide 27 mmol/L (21-32) 03/16/23 06:11 Anion Gap 5 (3-11) 03/16/23 06:11 BUN 11 mg/dl (6-23) 03/16/23 06:11 Creatinine 0.87 mg/dl (0.6-1.4) 03/16/23 06:11 Est Cr Clr Drug Dosing 114.2 ml/min 03/16/23 06:11 Est GFR ( Amer) 110.3 ml/min 03/16/23 06:11 Est GFR (Non-Af Amer) 95.1 ml/min 03/16/23 06:11 BUN/Creatinine Ratio 12.6 (10-20) 03/16/23 06:11 Glucose 100 mg/dl (70-99(Fasting)) H 03/16/23 06:11 Estimat Average Glucose 111 mg/dl 03/16/23 06:11 Hemoglobin A1c 5.5 % (4.5-5.6) 03/16/23 06:11 Calcium 8.5 mg/dl (8.6-10.3) L 03/16/23 06:11 Total Bilirubin 0.3 mg/dl (0.2-1.0) 03/15/23 14:37 AST 17 U/L (13-39) 03/15/23 14:37 ALT 13 U/L (7-52) 03/15/23 14:37 Alkaline Phosphatase 87 U/L (34-104) 03/15/23 14:37 C-Reactive Protein 4.45 mg/dl (0-0.5) H 03/15/23 14:37 Total Protein 8.2 gm/dl (6.0-8.3) 03/15/23 14:37 Albumin 3.9 gm/dl (3.4-5.0) 03/15/23 14:37 Globulin 4.3 gm/dl (2.5-4.0) H 03/15/23 14:37 Albumin/Globulin Ratio 0.9 (0.9-2) 03/15/23 14:37 Procalcitonin 0.06 ng/ml (0-0.5) 03/15/23 14:37 SARS-CoV-2, RNA, NAAT NEGATIVE (NEGATIVE) 03/15/23 17:00 Impressions Foot X-Ray 03/15/23 16:16 LEFT FOOT 3 VIEWS CLINICAL HISTORY: Cellulitis. Swelling. FINDINGS: 3 views of the left foot are obtained. No prior studies are available for comparison at the time of dictation. The skeletal structures are osteopenic. There is an acute appearing displaced fracture through the distal shaft of the fifth proximal phalanx. Erosive destructive change is seen at the third metatarsophalangeal joint. This is highly suspicious for osteomyelitis. Erosive permeative changes also seen of the fifth proximal phalanx. There is age- indeterminate erosive change involving the tuft of the second distal phalanx and the base of the second proximal phalanx. There are numerous tiny bony fragments throughout the second and third toes. Advanced osteoarthritic changes seen at the first metatarsophalangeal joint. Milder degenerative changes seen throughout the midfoot. There is a large plantar heel spur. Diffuse soft tissue edema is noted throughout the forefoot. There are tiny foci of gas within the fifth toe. IMPRESSION: 1. There is an acute appearing displaced fracture through the head of the fifth proximal phalanx. This may be pathologic. 2. Erosive change at the third metatarsophalangeal joint as well as permeative change in the fifth proximal phalanx are highly suspicious for osteomyelitis. There is age indeterminate erosive change involving the tuft of the second distal phalanx and the base of the second proximal phalanx. Correlate with any prior outside imaging studies. 3. Diffuse soft tissue edema throughout the foot suggests cellulitis. Correlate clinically. 4. Degenerative change and large plantar heel spur as above. Dictated: 03/15/2023 6:17 PM Transcribed: 03/15/2023 6:33 PM Lana [id number] BRITTANEY_Candido [id number] Electronically signed by: Humberto Huber M.D. 03/15/2023 7:06 PM Foot MRI 03/15/23 17:02 Exam(s): MRI LEFT FOOT W/WO Contrast IV Amt: 11cc gadavist EXAM: MR Left Lower Extremity Without and With Intravenous Contrast, Foot CLINICAL HISTORY: Reason for exam: eval for osteomyelitis. TECHNIQUE: Multiplanar magnetic resonance images of the left foot without and with intravenous contrast. CONTRAST: Patient received 11cc gadavist of IV contrast COMPARISON: No relevant prior studies available. FINDINGS: Soft tissue ulcer/cellulitis involving the second toe. Severe osteomyelitis of the entire second toe, with erosive changes throughout the entire toe including the metatarsal head which is fragmented. Soft tissue ulcer/cellulitis involving the third toe. Severe osteomyelitis of the entire third toe, with erosive changes throughout the entire toe including resorption of the third metatarsal head. Edema extends into the third metatarsal diaphysis. Soft tissue ulcer/cellulitis involving the fifth toe. Severe osteomyelitis of the fifth toe, with erosive changes throughout the middle and distal phalanx. Severe degenerative changes of the first MTP. Impression: Severe osteomyelitis of the second, third, and fifth rays, as described. Electronically signed by: Jean Carlos Lopez MD 03/16/23 00:40 AM Venous Doppler Study 03/15/23 17:02 ULTRASOUND LEFT LOWER EXTREMITY VENOUS CLINICAL HISTORY: Left leg swelling and erythema. COMPARISON STUDY: Left lower extremity venous ultrasound dated 03/15/2013. TECHNIQUE: Real-time, grayscale, and color Doppler sonography of the deep veins of the left lower extremity was performed from the inguinal crease to the calf. Compression and augmentation were utilized. FINDINGS: There is no sonographic evidence of deep venous thrombosis identified in the left lower extremity. The common femoral, superficial femoral, and popliteal veins are patent and normally compressible. The greater saphenous vein and the profunda femoris vein at the junction with the common femoral vein are clear. The visualized calf veins are patent. Enlarged left inguinal lymph nodes are reactive. IMPRESSION: 1 There is no sonographic evidence of deep venous thrombosis identified in the left lower extremity. 2. Enlarged left inguinal lymph nodes are likely reactive. Correlate clinically. ACT 112: Negative or not required by law. Electronically signed by: Humberto Huber M.D. 03/15/2023 7:30 PM Chest X-Ray 03/15/23 19:21 XR chest 1V portable CLINICAL HISTORY: admission, possible preop COMPARISON STUDY: No previous studies for comparison. FINDINGS: Lung volumes are normal. Lungs are clear. There is no pneumothorax or pleural effusion. There is borderline cardiomegaly. Mediastinal contours are normal. There is no evidence for pulmonary edema. IMPRESSION: No acute cardiopulmonary findings. ACT 112: Negative or not required by law. Electronically signed by: Calvin Barahona M.D. 03/16/2023 7:50 AM
--- NOTE | 2023-03-16 13:32 | Anesthesiology Consultation ---
Date of Service March 16, 2023 Assessment & Plan (1) Encounter for pre-operative examination: Chart Review Chart Review: Acceptable Risk for Surgery and Patient NOT seen in Pre Admission Testing Consults Requested none History Surgery Operation Date: 03/16/23 07:00 Proposed Procedures p Left Foot Amputation Transmetatarsal - Saurabh Garzon DPM, MS Height/Weight Height: 5 ft 9 in Weight: 112.1 kg Allergies Allergy/AdvReac Type Severity Reaction Status Date / Time house dust Allergy Intermediate SNEEZING, Verified 03/15/23 15:57 CONGESTION Medications Home Medications Medication Instructions Recorded Confirmed Last Taken acetaminophen 500 mg tablet 1,000 mg PO DIRECTED PRN Pain 03/15/23 03/15/23 03/14/23 (Tylenol Extra Strength) ibuprofen 200 mg tablet (Advil) 400 mg PO DIRECTED PRN Pain 03/15/23 03/15/23 03/14/23 Active Medications Generic Name Dose Route Start Last Admin Trade Name Freq PRN Reason Stop Dose Admin Amlodipine Besylate 5 mg 03/15/23 21:40 03/15/23 22:09 Amlodipine Besylate 5 Mg Tab PO 04/14/23 21:39 5 mg HS CHATO Administration Folic Acid 1 mg 03/16/23 09:00 03/16/23 07:53 Folic Acid 1 Mg Tab PO 04/15/23 08:59 1 mg QAM CHATO Administration Piperacillin Sod/Tazobactam 120 mls @ 30 mls/hr 03/16/23 02:00 03/16/23 12:53 Sod 4.5 gm/ Dextrose IV 03/23/23 01:59 30 mls/hr Q8H CHATO Administration Protocol Vancomycin HCl 1,500 mg/ 530 mls @ 200 mls/hr 03/16/23 08:30 03/16/23 12:49 Sodium Chloride IV 03/17/23 17:30 Infused Q12H CHATO Infusion Miscellaneous 1 each 03/16/23 08:59 03/16/23 07:50 Remove Nicoderm Patch N/A 04/15/23 08:58 1 each DAILY@0859 CHATO Administration Nicotine 21 mg 03/16/23 09:00 03/16/23 07:51 Nicotine 21 Mg/24 Hr Tdsy TD 04/15/23 08:59 21 mg QAM CHATO Administration Thiamine HCl 100 mg 03/16/23 09:00 03/16/23 07:53 Thiamine Hcl 100 Mg Tab PO 04/15/23 08:59 100 mg QAM CHATO Administration Past Medical History Medical History Alcohol use disorder Tobacco use disorder Uncontrolled hypertension Past Family History Family History Father Stroke Mother Breast cancer Past Surgical History Surgical History No significant past surgical history Social History Smoking Status: Current every day smoker tobacco type: cigarettes Smoking cigarettes per day: 1.5 ppd Do You Dip or Chew Tobacco: No Hx Alcohol Use: Yes Alcohol type: hard liquor alcohol intake frequency: 3 or more drinks per day Hx Substance Use: No Physical Exam Vital Signs Last Vital Signs Temp 98.1 F 03/16/23 11:11 Pulse 59 L 03/16/23 11:11 Resp 16 03/16/23 11:11 BP 135/94 03/16/23 11:11 Pulse Ox 98 03/16/23 11:11 O2 Del Method Room Air 03/16/23 11:11 Testing Laboratory Results 03/16/23 06:11 03/16/23 06:11 Hemoglobin A1c 5.5 % (4.5-5.6) 03/16/23 06:11 03/15/23 21:37 Gram Stain - Final Toe,Left Fifth Electrocardiogram Date: 03/15/23 Findings: + NSR @
--- NOTE | 2023-03-16 13:43 | Pharmacy Report ---
Pharmacy PK ABX Note - Date of Service March 16, 2023 - Assessment and Plan Assessment 57 year old M receiving IV Vancomycin + Zosyn for treatment of RLE Cellulitis and osteomyelitis. Scheduled for amputation tomorrow morning. Blood and foot cultures pending, afebrile, WBC wnl. Day # 2 of antimicrobial therapy. Plan Vancomycin * Loading dose: 2750 mg IV x 1 * Maintenance dose: 1500 mg IV every 12 hours * Regimen is predicted to achieve target AUC/LANDY of 400-600 mg/L.hr * Pharmacy has transitioned to AUC monitoring for vancomycin. AUC/LANDY is the preferred PK/PD target and is associated with decreased risk of nephrotoxicity compared to traditional trough targets. * Level to be ordered if therapy extends beyond 48 hours Zosyn 4.5g IV Q8H extended interval infusion Pharmacy will continue to follow and will adjust dose/frequency as necessary. Thank you.
--- NOTE | 2023-03-16 14:49 | Electrocardiogram Report ---
Test Reason : Blood Pressure : / mmHG Vent. Rate : 060 BPM Atrial Rate : 060 BPM P-R Int : 150 ms QRS Dur : 088 ms QT Int : 446 ms P-R-T Axes : 052 000 036 degrees QTc Int : 446 ms Normal sinus rhythm Normal ECG When compared with ECG of 24-OCT-2004 20:16, QT has lengthened Confirmed by Chase Nunez ([id number]) on 03/16/2023 2:48:56 PM Referred By: REFERRED SELF Confirmed By:Chase Nunez
[2023-03-16] MEDS ORDERED: fentaNYL citrate PF 100 MCG/2 ML VIAL ONE (15:21)
[2023-03-16] MEDS ORDERED: MIDAZOLAM HCL 1 MG/ML 2ML VIAL ONE (15:21)
[2023-03-16] MEDS ORDERED: PROPOFOL IV EMULSION 10 MG/ML 20 ML VIAL IV ONE (15:21)
[2023-03-16] MEDS ORDERED: LIDOCAINE 2% 2 ML VIAL/AMP(20MG/ML) INFIL ONE (15:21)
--- NOTE | 2023-03-16 15:59 | History & Physical Bridge Note ---
Date of Service March 16, 2023 History & Physical Bridge Note I have examined the patient, reviewed the History & Physical and in the interval since the performance of the History & Physical I have noted the following changes of clinical significance: no changes noted
[2023-03-16] MEDS ORDERED: ATROPINE SULFATE 0.1 MG/ML 10ML SYR IV PRN (16:04)
[2023-03-16] MEDS ORDERED: ePHEDrine sulfate 50 MG/ML AMP IV PRN (16:04)
[2023-03-16] MEDS ORDERED: fentaNYL citrate PF 100 MCG/2 ML VIAL IV PRN (16:04)
[2023-03-16] MEDS ORDERED: ONDANSETRON INJ 2 MG/ML 2 ML VIAL IV PRN (16:04)
[2023-03-16] MEDS ORDERED: BUPIVACAINE 0.5 % 5 MG/1 ML MPF 30ML VIAL ONE (16:17)
--- NOTE | 2023-03-16 17:10 | Post Operative Brief Note ---
Immediate Post Op Note v1 Date of Surgery March 16, 2023 Pre & Post Diagnosis Operation Date: 03/16/23 07:00 Pre-Op Diagnosis: Left Foot Cellulitis, Osteomyelitis Post-Op Diagnosis: Left Foot Cellulitis, Osteomyelitis I identified the patient and participated in the time-out.: Yes Procedure Operation Date: 03/16/23 07:00 Actual Procedures p Left Foot Amputation Transmetatarsal(Left) - Saurabh Garzon DPM, MS Surgeon Saurabh Garzon DPM, MS Corporate Strategist None Estimated Blood Loss 10 Findings Consistent with Post-Op Diagnosis
--- NOTE | 2023-03-16 17:32 | Anesthesiology Progress Note ---
Date of Service March 16, 2023 Anesthesia Post Procedure Vital Signs Vital Signs: Temp Pulse Pulse Pulse Resp BP BP 03/16/23 17:13 97.3 F L 60 20 113/93 03/16/23 15:54 60 03/16/23 15:19 98.2 F 57 L 18 129/82 03/16/23 11:11 98.1 F 59 L 16 135/94 03/16/23 07:00 78 03/16/23 07:51 97.9 F 61 16 146/99 H 03/16/23 02:23 97.7 F 56 L 18 124/75 03/15/23 23:00 66 03/15/23 23:10 98.1 F 72 18 153/71 H 03/15/23 21:56 66 03/15/23 21:00 97.7 F 67 18 156/89 H 03/15/23 19:39 61 18 127/84 Pulse Ox O2 Del Method O2 Flow Rate 03/16/23 17:13 100 Nasal Cannula 3 03/16/23 15:54 03/16/23 15:19 99 Room Air 03/16/23 11:11 98 Room Air 03/16/23 07:00 03/16/23 07:51 98 Room Air 03/16/23 02:23 96 Room Air 03/15/23 23:00 03/15/23 23:10 96 Room Air 03/15/23 21:56 03/15/23 21:00 99 Room Air 03/15/23 19:39 97 Room Air Transfer of Care Handoff Completed per policy Notes Mental Status: alert / awake / arousable and participated in evaluation Patient Amnestic to Procedure: Yes Nausea / Vomiting: adequately controlled Pain: adequately controlled Airway Patency, RR, SpO2: stable & adequate BP & HR: stable & adequate Hydration State: stable & adequate Anesthetic Complications: no major complications apparent and Pt Satisfied with anesthetic care
[2023-03-16] MEDS: oxyCODONE HCL IR 5 MG TAB (IMMEDIATE RELEASE) PO PRN (20:14)
[2023-03-16] MEDS: amLODIPine BESYLATE 5 MG TAB PO SCH (20:14)
--- NOTE | 2023-03-16 21:12 | Operative Report ---
Post Operative Report Pre & Post Diagnosis Operation Date: 03/16/23 07:00 Pre-Op Diagnosis: Left Foot Cellulitis, Osteomyelitis Post-Op Diagnosis: Left Foot Cellulitis, Osteomyelitis I identified the patient and participated in the time-out.: Yes Procedure Operation Date: 03/16/23 07:00 Actual Procedures p Left Foot Amputation Transmetatarsal(Left) - Saurabh Garzon DPM, MS Surgeon Saurabh Garzon DPM, MS Commanding Officer Traffic Division None Estimated Blood Loss 10 Findings Consistent with Post-Op Diagnosis Left foot osteomyelitis Specimens 1.) Left foot TMA amputation - pathology 2.) Left foot fifth phalanx Description of Procedure History of present illness: Patient is a 57 year old male who is seen for treatment of left foot osteomyelitis. Recent MRI revealed osteomyelitis of the second, third, and fifth rays. Physical examination notes continued maggots in wounds of left foot. I discussed transmetatarsal amputation and reviewed surgery. All questions answered. Discussed procedure in detail and postoperative recovery. All potential risks, benefits, complications, alternatives, rehab, potential for incomplete relief of symptoms, need for further surgery, DVT, PE, , persistent pain, swelling, scarring, weakness, neurovascular, wound complications and potential for amputations were discussed with patient. Unwanted outcomes such as, but not limited to were reviewed including under correction, overcorrection, return of deformity, infection. All questions were answered. Patient has decided to proceed with procedure as indicated. Preoperative diagnosis: Left foot osteomyelitis Postoperative diagnosis: Same Name of operation: 1.) Left foot transmetatarsal amputation 2.) Delayed Primary Closure left foot Surgeon Dr. Garzon Commanding Officer Traffic Division: None Anesthesia: General anesthesia care Hemostasis: Anatomic dissection, Pneumatic calf tourniquet Estimated blood loss: 20cc Procedure in detail: Under mild sedation the patient was brought in the operating room placed on the operating table in supine position. A pneumatic calf tourniquet was then placed about the patient's left calf. Following IV sedation local anesthesia was obtained about the left ankle utilizing 10 cc of 0.5% Marcaine plain. The foot was then prepped scrubbed and draped in usual aseptic manner. An Esmarch ban dage was utilized to exsanguinate the patient's left foot and the pneumatic calf tourniquet was then inflated. Attention was then directed to the left foot. A fish mouth incision was created utilizing a sharp, sterile, #15 blade encompassing the forefoot. The incision which was deepened through subcutaneous tissue using sharp blunt dissection. Care was taken to identify and retract all vital neurovascular structures. All bleeders were ligated and cauterized necessary. Once down to the layer of periosteum and bone, a transverse incision was made within the periosteum. A montoya elevator was then used to free the soft tissue at the site of the metatarsal neck region. Once this was then performed with the use of a sagittal saw the metatarsals were then transversely cut. Once all the metatarsals have been cut, the metatarsal heads were then disarticulated from the surrounding soft tissue with the use of a 15 blade dissecting down through the medial aspect of the first metatarsal capsule including the sesamoids the soft tissue was then reflected from the plantar aspect of the metatarsal heads plantarly. The patient at that point then had the forefoot completely disarticulated and passed off to the back table in order to be sent for pathology. Attention was now directed back towards the forefoot. There was no gross infectious signs noted at this point. The patient then underwent copious irrigation with the use of 3 L of lactate ringer. All participants in the surgery removed their top layer of gloves and only clean instrumentation was used from here on out. Hemostasis was acquired. Due to infection the wound was left open and Patient will be brought back at a later date for delayed closure of wound once infection resolves. The pneumatic tourniquet was deflated and a prompt hyperemic response was noted to the left foot. Dry sterile dressing was applied consisting of 4x4's, ABD, Kerlix and Raudel. The Patient tolerated the procedure and anesthesia well. He was transferred to recovery room vital signs stable. After postoperative monitoring the patient will be re admitted to the floor resuming all pre operative orders. I attest to the content of the Intraoperative Record and any orders documented therein. Any exceptions are noted below.
[2023-03-16] MEDS ORDERED: HYDROmorphone INJ 0.5 MG/0.5 ML SYR IV STA (22:07)
[2023-03-16 22:12] LABS: Hemoglobin 12.7 g/dl (14.0-18.0)
[2023-03-16] MEDS: ACETAMINOPHEN 325 MG TAB PO PRN (23:00)
[2023-03-17] MEDS ORDERED: oxyCODONE HCL IR 5 MG TAB (IMMEDIATE RELEASE) PO STA (00:36)
[2023-03-17] MEDS: oxyCODONE HCL IR 5 MG TAB (IMMEDIATE RELEASE) PO PRN ×4 (00:46→22:47)
[2023-03-17] MEDS: PIPERACILLIN/TAZOBACTAM 4.5 GM in DEXTROSE 5% 100 ML IV SCH ×3 (03:51→20:01)
[2023-03-17] MEDS: ACETAMINOPHEN 325 MG TAB PO PRN (05:40)
[2023-03-17] MEDS: GABAPENTIN 600 MG TAB PO SCH ×2 (05:40→17:23)
[2023-03-17 06:58] LABS: Hematocrit (blood only) 35.8 % (42.0-52.0); Mean Corpuscular Hemoglobin 32.9 pg (25.0-34.0); Mean Corpuscular Hgb Conc 33.5 g/dL (32.0-36.0); Mean Corpuscular Volume 98.1 fL (80.0-100.0); Mean Platelet Volume 9.2 fL (9.4-12.4); Platelet Count 211 K/uL (130-400); RDW Standard Deviation 43.6 fL (36.4-46.3); Red Blood Count 3.65 M/uL (4.70-6.10); White Blood Count 6.62 K/ul (4.8-10.8)
[2023-03-17 07:19] LABS: BUN Creatinine Ratio 11.4 (10-20); Calcium 8.4 mg/dl (8.6-10.3); Creatinine Clr Calc Pharmacy 115.5 ml/min; Est GFR (African American) 109.7 ml/min; Est GFR (Non-African American) 94.7 ml/min
[2023-03-17] MEDS: VANCOMYCIN HCL 1,500 MG in SODIUM CHLORIDE 0.9% 500 ML IV SCH ×2 (08:09→20:01)
[2023-03-17] MEDS: NICOTINE 21 MG/24 HR TDSY TD SCH (08:10)
[2023-03-17] MEDS: FOLIC ACID 1 MG TAB PO SCH (08:10)
[2023-03-17] MEDS: THIAMINE HCL 100 MG TAB PO SCH (08:10)
--- NOTE | 2023-03-17 13:02 | Hospitalist Progress Note ---
Date of Service March 17, 2023 Assessment & Plan (1) Wound of left foot: (2) Cellulitis of left foot: Plan: This is a 57yo M with a PMH of uncontrolled HTN and no other known medical problems who presents with L foot wound and LLE cellulitis. Ongoing LLE cellulitis with worsening pain and swelling to L foot wound over past 2 months Patient noncompliant patient, does not follow with a PCP or take scheduled medications Afebrile, no leukocytosis, ESR 72, CRP 4.45, procal negative Foot XR with 1. There is an acute appearing displaced fracture through the head of the fifth proximal phalanx. This may be pathologic. 2. Erosive change at the third metatarsophalangeal joint as well as permeative change in the fifth proximal phalanx are highly suspicious for osteomyelitis. 3. Diffuse soft tissue edema throughout the foot suggests cellulitis. Correlate clinically. 4. Degenerative change and large plantar heel spur as above. Venous doppler r/o DVT in LLE POD#1 s/p Left Foot Amputation Transmetatarsal(Left) by Dr. Garzon with delayed primary closure of left foot Continue broad spectrum abx with vanco/zosyn, following intraop cultures NWB LLE with fall precautions, OT/PT consulted ID consulted (3) Tobacco use disorder: Plan: Smokes 1 ppd. Nicotine patch ordered. Smoking cessation recommended (4) Alcohol use disorder: Plan: Endorses 4-5 shots of rum and a few beers nightly, last drink 1800 yesterday Denies h/o withdrawal but drinks every day AWSS withdrawal precautions with gabapentin protocol and PRN IV ativan Thiamine and folic acid supplementation DVT Ppx: starting SQ heparin for now - planned closure on Tuesday so will hold Tuesday PM Code status: FULL PCP: does not follow with a PCP Dispo: Admitted to [facility] Updated sister in law with permission. I spent a total of 50 minutes coordinating, documenting, and providing care for this patient excluding time spent in the performance of separately billed services. Admission and Anticipated Discharge Date Admission Date: March 15, 2023 Supervising Physician Co-Signing Physician Notes Patient seen and examined at bedside. Discussed with the provider. Patient is comfortable lying in the bed. Pain is well controlled on current regimen. Denies fever or chills. On IV antibiotics. PT OT eval ID consultation awaited. Subjective Patient seen and examined at bedside s/p transmetatarsal amputation of L foot yesterday. Had pain overnight and didn't sleep well but is much more comfortable today. Resting intermittently, denies any F/C, CP, SOB, N/V, abdominal pain, dysuria, having bowel movements. Preparing to with with PT although NWB on LLE with delayed closure. Review of Systems Review of Systems: At least ten systems reviewed and negative except as noted in the HPI. Physical Exam Physical Exam: Gen: WD/WN, NAD,lying in bed, A&Ox3, sleeping but awakens and answers questions appropriately HEENT: Normocephalic, atraumatic, conjunctivae moist, sclerae anicteric, mucous membranes moist Lung: Clear to Auscultation bilaterally, no wheezes/rales/rhonchi Heart: Regular rate, regular rhythm, no murmurs, rubs, or gallops Abdomen: Soft, NT, ND +BS x 4 Extremities: +L foot surgical dressing in place, c/d/i. no edema. Some erythema noted on proximal LLE, not warm. Skin: Warm, no rash Results & Data Results & Data Vital Signs (Past 12 Hours) Vital Signs Temp Pulse Pulse Resp BP BP BP 03/17/23 11:19 36.9 C 59 L 16 152/81 H 03/17/23 08:00 58 L 03/17/23 07:57 36.5 C 71 18 170/75 H 03/17/23 03:26 36.6 C 61 18 110/66 03/17/23 01:09 60 Pulse Ox O2 Del Method 03/17/23 11:19 94 Room Air 03/17/23 08:00 03/17/23 07:57 97 Room Air 03/17/23 03:26 98 Room Air 03/17/23 01:09 Laboratory Results Short CBC 03/16/23 03/17/23 Range/Units 20:15 06:31 WBC 6.62 (4.8-10.8) K/ul Hgb 12.7 L 12.0 L (14.0-18.0) g/dl Hct 38.0 L 35.8 L (42.0-52.0) % Plt Count 211 (130-400) K/uL BMP 03/17/23 06:31 Sodium 137 Potassium 4.0 Chloride 107 Carbon Dioxide 26 BUN 10 Creatinine 0.88 Glucose 101 H Calcium 8.4 L Diagnostic Findings Foot X-Ray 03/15/23 16:16 LEFT FOOT 3 VIEWS CLINICAL HISTORY: Cellulitis. Swelling. FINDINGS: 3 views of the left foot are obtained. No prior studies are available for comparison at the time of dictation. The skeletal structures are osteopenic. There is an acute appearing displaced fracture through the distal shaft of the fifth proximal phalanx. Erosive destructive change is seen at the third metatarsophalangeal joint. This is highly suspicious for osteomyelitis. Erosive permeative changes also seen of the fifth proximal phalanx. There is age- indeterminate erosive change involving the tuft of the second distal phalanx and the base of the second proximal phalanx. There are numerous tiny bony fragments throughout the second and third toes. Advanced osteoarthritic changes seen at the first metatarsophalangeal joint. Milder degenerative changes seen throughout the midfoot. There is a large plantar heel spur. Diffuse soft tissue edema is noted throughout the forefoot. There are tiny foci of gas within the fifth toe. IMPRESSION: 1. There is an acute appearing displaced fracture through the head of the fifth proximal phalanx. This may be pathologic. 2. Erosive change at the third metatarsophalangeal joint as well as permeative change in the fifth proximal phalanx are highly suspicious for osteomyelitis. There is age indeterminate erosive change involving the tuft of the second distal phalanx and the base of the second proximal phalanx. Correlate with any prior outside imaging studies. 3. Diffuse soft tissue edema throughout the foot suggests cellulitis. Correlate clinically. 4. Degenerative change and large plantar heel spur as above. Dictated: 03/15/2023 6:17 PM Transcribed: 03/15/2023 6:33 PM Lana [id number] BRITTANEY_Candido [id number] Electronically signed by: Humberto Huber M.D. 03/15/2023 7:06 PM Foot MRI 03/15/23 17:02 Exam(s): MRI LEFT FOOT W/WO Contrast IV Amt: 11cc gadavist EXAM: MR Left Lower Extremity Without and With Intravenous Contrast, Foot CLINICAL HISTORY: Reason for exam: eval for osteomyelitis. TECHNIQUE: Multiplanar magnetic resonance images of the left foot without and with intravenous contrast. CONTRAST: Patient received 11cc gadavist of IV contrast COMPARISON: No relevant prior studies available. FINDINGS: Soft tissue ulcer/cellulitis involving the second toe. Severe osteomyelitis of the entire second toe, with erosive changes throughout the entire toe including the metatarsal head which is fragmented. Soft tissue ulcer/cellulitis involving the third toe. Severe osteomyelitis of the entire third toe, with erosive changes throughout the entire toe including resorption of the third metatarsal head. Edema extends into the third metatarsal diaphysis. Soft tissue ulcer/cellulitis involving the fifth toe. Severe osteomyelitis of the fifth toe, with erosive changes throughout the middle and distal phalanx. Severe degenerative changes of the first MTP. Impression: Severe osteomyelitis of the second, third, and fifth rays, as described. Electronically signed by: Jean Carlos Lopez MD 03/16/23 00:40 AM Venous Doppler Study 03/15/23 17:02 ULTRASOUND LEFT LOWER EXTREMITY VENOUS CLINICAL HISTORY: Left leg swelling and erythema. COMPARISON STUDY: Left lower extremity venous ultrasound dated 03/15/2013. TECHNIQUE: Real-time, grayscale, and color Doppler sonography of the deep veins of the left lower extremity was performed from the inguinal crease to the calf. Compression and augmentation were utilized. FINDINGS: There is no sonographic evidence of deep venous thrombosis identified in the left lower extremity. The common femoral, superficial femoral, and popliteal veins are patent and normally compressible. The greater saphenous vein and the profunda femoris vein at the junction with the common femoral vein are clear. The visualized calf veins are patent. Enlarged left inguinal lymph nodes are reactive. IMPRESSION: 1 There is no sonographic evidence of deep venous thrombosis identified in the left lower extremity. 2. Enlarged left inguinal lymph nodes are likely reactive. Correlate clinically. ACT 112: Negative or not required by law. Electronically signed by: Humberto Huber M.D. 03/15/2023 7:30 PM Chest X-Ray 03/15/23 19:21 XR chest 1V portable CLINICAL HISTORY: admission, possible preop COMPARISON STUDY: No previous studies for comparison. FINDINGS: Lung volumes are normal. Lungs are clear. There is no pneumothorax or pleural effusion. There is borderline cardiomegaly. Mediastinal contours are normal. There is no evidence for pulmonary edema. IMPRESSION: No acute cardiopulmonary findings. ACT 112: Negative or not required by law. Electronically signed by: Calvin Barahona M.D. 03/16/2023 7:50 AM
[2023-03-17] MEDS: HEPARIN SOD 5,000 UNIT/0.5 ML VIAL SQ SCH ×2 (14:01→21:28)
--- NOTE | 2023-03-17 14:45 | Pharmacy Report ---
Pharmacy PK ABX Note - Date of Service March 17, 2023 - Assessment and Plan Microbiology 03/15/23 21:37 Toe,Left Fifth Wound Culture - Preliminary Staphylococcus species Gram negative bacilli 03/15/23 21:37 Toe,Left Fifth Gram Stain - Final 03/16/23 16:55 Foot,Left Aerobic and Anaerobic Culture - Preliminary Pin-point growth present, reincubating. 03/15/23 16:54 Blood Aerobic Blood Culture - Preliminary 03/15/23 16:54 Blood Anaerobic Blood Culture - Preliminary No growth in Aerobic bottle after 24 hours. No growth in Anaerobic bottle after 24 hours. 03/15/23 16:20 Blood Aerobic Blood Culture - Preliminary 03/15/23 16:20 Blood Anaerobic Blood Culture - Preliminary No growth in Aerobic bottle after 24 hours. No growth in Anaerobic bottle after 24 hours. 03/16/23 16:55 Foot,Left Gram Stain - Final Assessment 57 year old M receiving IV Vancomycin + Zosyn for treatment of LLL Cellulitis and possible osteomyelitis. POD1 left foot amputation. Blood cultures - no growth after 24 hours, foot cultures pending, toe culture growing staph sp and GNB, afebrile, WBC wnl. Day # 3 of antimicrobial therapy. Plan Vancomycin * Current regimen: 1500 mg IV every 12 hours * Random level obtained 03/17/23 resulted as 17.3 mcg/mL. This is predicted to achieve target AUC/LANDY of 400-600 mg/L.hr * Predicted AUC at steady state: 556 mg/L.hr * Continue 1500 mg IV every 12 hours * Repeat level will be ordered in 2-3 days if therapy continues Zosyn 4.5g IV Q8H extended interval infusion Pharmacy will continue to follow and will adjust dose/frequency as necessary. Thank you.
[2023-03-17] MEDS: amLODIPine BESYLATE 5 MG TAB PO SCH (21:28)
[2023-03-18] MEDS: PIPERACILLIN/TAZOBACTAM 4.5 GM in DEXTROSE 5% 100 ML IV SCH ×3 (05:01→20:09)
[2023-03-18] MEDS: HEPARIN SOD 5,000 UNIT/0.5 ML VIAL SQ SCH ×3 (06:22→22:16)
[2023-03-18] MEDS: GABAPENTIN 600 MG TAB PO SCH (06:22)
[2023-03-18 07:41] LABS: Hematocrit (blood only) 36.4 % (42.0-52.0); Hemoglobin 12.2 g/dl (14.0-18.0); Mean Corpuscular Hemoglobin 32.8 pg (25.0-34.0); Mean Corpuscular Hgb Conc 33.5 g/dL (32.0-36.0); Mean Corpuscular Volume 97.8 fL (80.0-100.0); Mean Platelet Volume 9.4 fL (9.4-12.4); Platelet Count 227 K/uL (130-400); RDW Coefficient of Variation 11.9 % (11.5-14.5); Red Blood Count 3.72 M/uL (4.70-6.10); White Blood Count 7.47 K/ul (4.8-10.8)
[2023-03-18 07:55] LABS: BUN Creatinine Ratio 9.9 (10-20); Calcium 8.6 mg/dl (8.6-10.3); Creatinine Clr Calc Pharmacy 111.7 ml/min; Est GFR (African American) 107.3 ml/min; Est GFR (Non-African American) 92.6 ml/min
[2023-03-18] MEDS: NICOTINE 21 MG/24 HR TDSY TD SCH (08:35)
[2023-03-18] MEDS: FOLIC ACID 1 MG TAB PO SCH (08:36)
[2023-03-18] MEDS: THIAMINE HCL 100 MG TAB PO SCH (08:36)
[2023-03-18] MEDS: oxyCODONE HCL IR 5 MG TAB (IMMEDIATE RELEASE) PO PRN ×2 (08:36→22:17)
[2023-03-18] MEDS: VANCOMYCIN HCL 1,500 MG in SODIUM CHLORIDE 0.9% 500 ML IV SCH ×2 (09:09→20:08)
--- NOTE | 2023-03-18 15:18 | Hospitalist Progress Note ---
Date of Service March 18, 2023 Assessment & Plan (1) Wound of left foot: (2) Cellulitis of left foot: Plan: This is a 57yo M with a PMH of uncontrolled HTN and no other known medical problems who presents with L foot wound and LLE cellulitis. Ongoing LLE cellulitis with worsening pain and swelling to L foot wound over past 2 months Patient noncompliant patient, does not follow with a PCP or take scheduled medications Afebrile, no leukocytosis, ESR 72, CRP 4.45, procal negative Foot XR with 1. There is an acute appearing displaced fracture through the head of the fifth proximal phalanx. This may be pathologic. 2. Erosive change at the third metatarsophalangeal joint as well as permeative change in the fifth proximal phalanx are highly suspicious for osteomyelitis. 3. Diffuse soft tissue edema throughout the foot suggests cellulitis. Correlate clinically. 4. Degenerative change and large plantar heel spur as above. Venous doppler r/o DVT in LLE POD#2 s/p Left Foot Amputation Transmetatarsal(Left) by Dr. Garzon with delayed primary closure of left foot Continue broad spectrum abx with vanco/zosyn, following intraop cultures NWB LLE with fall precautions, OT/PT consulted and recommend rehab ID consulted (3) Tobacco use disorder: Plan: Smokes 1 ppd. Nicotine patch ordered. Smoking cessation recommended (4) Alcohol use disorder: Plan: Endorses 4-5 shots of rum and a few beers nightly, last drink 1800 yesterday Denies h/o withdrawal but drinks every day AWSS withdrawal precautions with gabapentin protocol and PRN IV ativan Thiamine and folic acid supplementation DVT Ppx: starting SQ heparin for now - planned closure on Tuesday so will hold Tuesday PM Code status: FULL PCP: does not follow with a PCP Dispo: Admitted to [facility] I spent a total of 35 minutes coordinating, documenting, and providing care for this patient excluding time spent in the performance of separately billed services. Admission and Anticipated Discharge Date Admission Date: March 15, 2023 Supervising Physician Co-Signing Physician Notes Patient seen and examined at bedside. Discussed with above provider. Patient comfortably sitting up on the side of the bed. Pain is well controlled on current regimen. Denies fever or chills. On IV antibiotics. PT OT and orthotic eval ID consultation awaited. Possible delayed closure on Tuesday by podiatry. Subjective Patient seen and examined in follow up for osteomyelitis L foot s/p transmetatarsal amputation of L foot on 03/16/23. Feeling more comfortable today, relaxing in bedside chair after therapy. Denies any F/C, CP, SOB, N/V, abdominal pain, dysuria, having bowel movements. Review of Systems Review of Systems: At least ten systems reviewed and negative except as noted in the HPI. Physical Exam Physical Exam: Gen: WD/WN, NAD,sitting in bedside chair, A&Ox3, pleasant HEENT: Normocephalic, atraumatic, conjunctivae moist, sclerae anicteric, mucous membranes moist Lung: Clear to Auscultation bilaterally, no wheezes/rales/rhonchi Heart: Regular rate, regular rhythm, no murmurs, rubs, or gallops Abdomen: Soft, NT, ND +BS x 4 Extremities: +L foot surgical dressing in place, c/d/i. no edema. Some erythema noted on proximal LLE, not warm. Skin: Warm, no rash Results & Data Results & Data Vital Signs (Past 12 Hours) Vital Signs Temp Pulse Resp BP Pulse Ox O2 Del Method 03/18/23 08:13 37.4 C 60 16 109/69 97 Room Air Laboratory Results Short CBC 03/18/23 Range/Units 06:59 WBC 7.47 (4.8-10.8) K/ul Hgb 12.2 L (14.0-18.0) g/dl Hct 36.4 L (42.0-52.0) % Plt Count 227 (130-400) K/uL BMP 03/18/23 06:59 Sodium 135 L Potassium 4.0 Chloride 105 Carbon Dioxide 26 BUN 9 Creatinine 0.91 Glucose 105 H Calcium 8.6 Diagnostic Findings Foot X-Ray 03/15/23 16:16 LEFT FOOT 3 VIEWS CLINICAL HISTORY: Cellulitis. Swelling. FINDINGS: 3 views of the left foot are obtained. No prior studies are available for comparison at the time of dictation. The skeletal structures are osteopenic. There is an acute appearing displaced fracture through the distal shaft of the fifth proximal phalanx. Erosive destructive change is seen at the third metatarsophalangeal joint. This is highly suspicious for osteomyelitis. Erosive permeative changes also seen of the fifth proximal phalanx. There is age- indeterminate erosive change involving the tuft of the second distal phalanx and the base of the second proximal phalanx. There are numerous tiny bony fragments throughout the second and third toes. Advanced osteoarthritic changes seen at the first metatarsophalangeal joint. Milder degenerative changes seen throughout the midfoot. There is a large plantar heel spur. Diffuse soft tissue edema is noted throughout the forefoot. There are tiny foci of gas within the fifth toe. IMPRESSION: 1. There is an acute appearing displaced fracture through the head of the fifth proximal phalanx. This may be pathologic. 2. Erosive change at the third metatarsophalangeal joint as well as permeative change in the fifth proximal phalanx are highly suspicious for osteomyelitis. There is age indeterminate erosive change involving the tuft of the second distal phalanx and the base of the second proximal phalanx. Correlate with any prior outside imaging studies. 3. Diffuse soft tissue edema throughout the foot suggests cellulitis. Correlate clinically. 4. Degenerative change and large plantar heel spur as above. Dictated: 03/15/2023 6:17 PM Transcribed: 03/15/2023 6:33 PM Lana [id number] BRITTANEY_Candido [id number] Electronically signed by: Humberto Huber M.D. 03/15/2023 7:06 PM Foot MRI 03/15/23 17:02 Exam(s): MRI LEFT FOOT W/WO Contrast IV Amt: 11cc gadavist EXAM: MR Left Lower Extremity Without and With Intravenous Contrast, Foot CLINICAL HISTORY: Reason for exam: eval for osteomyelitis. TECHNIQUE: Multiplanar magnetic resonance images of the left foot without and with intravenous contrast. CONTRAST: Patient received 11cc gadavist of IV contrast COMPARISON: No relevant prior studies available. FINDINGS: Soft tissue ulcer/cellulitis involving the second toe. Severe osteomyelitis of the entire second toe, with erosive changes throughout the entire toe including the metatarsal head which is fragmented. Soft tissue ulcer/cellulitis involving the third toe. Severe osteomyelitis of the entire third toe, with erosive changes throughout the entire toe including resorption of the third metatarsal head. Edema extends into the third metatarsal diaphysis. Soft tissue ulcer/cellulitis involving the fifth toe. Severe osteomyelitis of the fifth toe, with erosive changes throughout the middle and distal phalanx. Severe degenerative changes of the first MTP. Impression: Severe osteomyelitis of the second, third, and fifth rays, as described. Electronically signed by: Jean Carlos Lopez MD 03/16/23 00:40 AM Venous Doppler Study 03/15/23 17:02 ULTRASOUND LEFT LOWER EXTREMITY VENOUS CLINICAL HISTORY: Left leg swelling and erythema. COMPARISON STUDY: Left lower extremity venous ultrasound dated 03/15/2013. TECHNIQUE: Real-time, grayscale, and color Doppler sonography of the deep veins of the left lower extremity was performed from the inguinal crease to the calf. Compression and augmentation were utilized. FINDINGS: There is no sonographic evidence of deep venous thrombosis identified in the left lower extremity. The common femoral, superficial femoral, and popliteal veins are patent and normally compressible. The greater saphenous vein and the profunda femoris vein at the junction with the common femoral vein are clear. The visualized calf veins are patent. Enlarged left inguinal lymph nodes are reactive. IMPRESSION: 1 There is no sonographic evidence of deep venous thrombosis identified in the left lower extremity. 2. Enlarged left inguinal lymph nodes are likely reactive. Correlate clinically. ACT 112: Negative or not required by law. Electronically signed by: Humberto Huber M.D. 03/15/2023 7:30 PM Chest X-Ray 03/15/23 19:21 XR chest 1V portable CLINICAL HISTORY: admission, possible preop COMPARISON STUDY: No previous studies for comparison. FINDINGS: Lung volumes are normal. Lungs are clear. There is no pneumothorax or pleural effusion. There is borderline cardiomegaly. Mediastinal contours are normal. There is no evidence for pulmonary edema. IMPRESSION: No acute cardiopulmonary findings. ACT 112: Negative or not required by law. Electronically signed by: Calvin Barahona M.D. 03/16/2023 7:50 AM
[2023-03-18] MEDS: amLODIPine BESYLATE 5 MG TAB PO SCH (20:11)
[2023-03-19] MEDS: PIPERACILLIN/TAZOBACTAM 4.5 GM in DEXTROSE 5% 100 ML IV SCH ×3 (04:30→20:12)
[2023-03-19] MEDS ORDERED: GABAPENTIN 600 MG TAB PO SCH (06:00)
--- NOTE | 2023-03-19 06:43 | Orthopedic Progress Note ---
Date of Service March 18, 2023 Assessment & Plan (1) Wound of right foot: Plan: Patient seen, evaluated, and treated. Patient status post day # 3 Left TMA DOS: 03/15/23 Dressing changed with out incident. Patient scheduled for delayed primary closure 03/20/23. Patient is non weight bearing left foot. (2) Cellulitis of right leg: (3) Osteomyelitis of right foot: Admission and Anticipated Discharge Date Admission Date: March 15, 2023 Subjective Patient seen and examined at bedside. Patient status post day # 3 Left TMA DOS: 03/15/23. Patient has no complaints. Review of Systems Review of Systems: All systems reviewed & are unremarkable except as noted in HPI & below Physical Exam Constitutional: cooperative and comfortable Eyes: normal visual waterman by confrontation Neck: normal visual inspection Respiratory: normal respiratory effort Cardiovascular: Rate/Rhythm: regular rate and regular rhythm Skin: + wound (Left foot TMA site open. Healthy bleeding noted.), + skin hypertrophy and + lichenification Neurologic: moves all extremities (Absent epicritic sensation) Psychiatric: Orientation: alert and oriented x 3 Lymphatic: + lymphedema (Left lower extremity) Results & Data Vital Signs (Past 12 Hours) Vital Signs Temp Pulse Resp BP Pulse Ox O2 Del Method 03/18/23 19:40 Room Air 03/18/23 21:16 36.8 C 60 20 148/85 H 97 Room Air (3) Osteomyelitis of right foot Osteomyelitis type: unspecified type Qualified Code(s): M86.9 - Osteomyelitis, unspecified
[2023-03-19] MEDS: HEPARIN SOD 5,000 UNIT/0.5 ML VIAL SQ SCH ×2 (06:46→14:57)
[2023-03-19] MEDS ORDERED: VANCOMYCIN LEVEL ONE (07:00)
[2023-03-19 07:38] LABS: Hematocrit (blood only) 37.4 % (42.0-52.0); Hemoglobin 12.5 g/dl (14.0-18.0); Mean Corpuscular Hemoglobin 33.2 pg (25.0-34.0); Mean Corpuscular Hgb Conc 33.4 g/dL (32.0-36.0); Mean Corpuscular Volume 99.2 fL (80.0-100.0); Mean Platelet Volume 9.5 fL (9.4-12.4); Platelet Count 236 K/uL (130-400); RDW Coefficient of Variation 11.9 % (11.5-14.5); RDW Standard Deviation 43.4 fL (36.4-46.3); Red Blood Count 3.77 M/uL (4.70-6.10); White Blood Count 6.96 K/ul (4.8-10.8)
[2023-03-19] MEDS: FOLIC ACID 1 MG TAB PO SCH (08:39)
[2023-03-19] MEDS: THIAMINE HCL 100 MG TAB PO SCH (08:39)
[2023-03-19] MEDS: NICOTINE 21 MG/24 HR TDSY TD SCH (08:43)
[2023-03-19] MEDS: VANCOMYCIN HCL 1,500 MG in SODIUM CHLORIDE 0.9% 500 ML IV SCH (08:53)
[2023-03-19 09:17] LABS: BUN Creatinine Ratio 9.5 (10-20); Calcium 9.1 mg/dl (8.6-10.3); Est GFR (African American) 101.9 ml/min; Est GFR (Non-African American) 87.9 ml/min; Potassium 4.3 mmol/L (3.5-5.1)
--- NOTE | 2023-03-19 10:50 | Pharmacy Report ---
Pharmacy PK ABX Note - Date of Service March 19, 2023 - Assessment and Plan Assessment 57 yo M receiving Vancomycin and Zosyn for left foot infection, possible osteomyelitis. * Day #5 of antimicrobial therapy. ID is consulted. * Afebrile and without leukocytosis. Renal fxn stable. * Underwent transmetatarsal left foot amputation on 03/16/23. * Foot cultures grew MSSA and Non-casting operator species. Both are sensitive to Bactrim. Plan Vancomycin * Current regimen: 1500 mg IV every 12 hours * Random level obtained 03/19/23 resulted as 11.9 mcg/mL. This is predicted to achieve target AUC/LANDY of 400-600 mg/L.hr * Predicted AUC at steady state: 439 mg/L.hr * Continue 1500 mg IV every 12 hours * Repeat random level will be ordered in 48 hours if therapy continues Pharmacy will continue to follow and will adjust dose/frequency as necessary. Thank you.
--- NOTE | 2023-03-19 13:45 | Hospitalist Progress Note ---
Date of Service March 19, 2023 Assessment & Plan (1) Wound of left foot: (2) Cellulitis of left foot: Plan: This is a 57yo M with a PMH of uncontrolled HTN and no other known medical problems who presents with L foot wound and LLE cellulitis. Ongoing LLE cellulitis with worsening pain and swelling to L foot wound over past 2 months Patient noncompliant patient, does not follow with a PCP or take scheduled medications Afebrile, no leukocytosis, ESR 72, CRP 4.45, procal negative Foot XR with 1. There is an acute appearing displaced fracture through the head of the fifth proximal phalanx. This may be pathologic. 2. Erosive change at the third metatarsophalangeal joint as well as permeative change in the fifth proximal phalanx are highly suspicious for osteomyelitis. 3. Diffuse soft tissue edema throughout the foot suggests cellulitis. Correlate clinically. 4. Degenerative change and large plantar heel spur as above. Venous doppler r/o DVT in LLE POD#3 s/p Left Foot Amputation Transmetatarsal(Left) by Dr. Garzon with delayed primary closure of left foot Intra-Op culture positive for Staph aureus; sensitive to Bactrim, vancomycin, ox acillin Infectious disease consulted; plan for total of 6 weeks of therapy, p.o. or IV depending on results. Continuing Zosyn. Discontinue vancomycin. NWB LLE with fall precautions, OT/PT consulted and recommend rehab N.p.o. from midnight for washout and delayed primary closure. Heparin on hold (3) Tobacco use disorder: Plan: Smokes 1 ppd. Nicotine patch ordered. Smoking cessation recommended (4) Alcohol use disorder: Plan: Endorses 4-5 shots of rum and a few beers nightly, last drink 1800 yesterday Denies h/o withdrawal but drinks every day AWSS withdrawal precautions with gabapentin protocol and PRN IV ativan Thiamine and folic acid supplementation DVT Ppx: Heparin on hold. Code status: FULL PCP: does not follow with a PCP Dispo: [facility] Please note the above document was generated using voice recognition software. It may contain grammatical, syntax or spelling errors. Any formal questions or concerns about the content, text or information contained within the body of this dictation should be directly addressed to the provider for clarification Admission and Anticipated Discharge Date Admission Date: March 15, 2023 Subjective Patient seen and examined at bedside. He is comfortable; not in distress. Reports that pain is well controlled on current regimen. Plan for washout and delayed primary closure tomorrow Review of Systems Review of Systems: All systems reviewed & are unremarkable except as noted in Subjective Physical Exam Physical Exam: Constitutional: WD/WN, vitals as above, NAD, sitting up in bed, pleasant, conversing easily Respiratory: normal respiratory effort, lungs clear to auscultation, no wheeze, rales, rhonchi. Normal insp/exp effort, no accessory muscle use Cardiovascular: RRR, no murmur, no edema Vessels: no JVD or carotid bruit Chest: normal inspection of chest Abdomen: normal bowel sounds, soft, nontender, no hepatosplenomegaly Musculoskeletal: Dressing in place over left foot. Clean dry and intact. Skin: no rashes, warm and dry normal turgor Neurologic: PERRL, EOMI, accommodation nl, no face palsy, no dysarthria CN's II- XI intact bilaterally and moves all extremities Psychiatric: A+Ox3, euthymic affect Results & Data Results & Data Vital Signs (Past 12 Hours) Vital Signs Temp Pulse Resp BP Pulse Ox O2 Del Method 03/19/23 07:30 Room Air 03/19/23 07:49 36.5 C 59 L 16 100/70 98 Room Air Laboratory Results Laboratory Results WBC 6.96 K/ul (4.8-10.8) 03/19/23 06:50 RBC 3.77 M/uL (4.70-6.10) L 03/19/23 06:50 Hgb 12.5 g/dl (14.0-18.0) L 03/19/23 06:50 Hct 37.4 % (42.0-52.0) L 03/19/23 06:50 MCV 99.2 fL (80.0-100.0) 03/19/23 06:50 MCH 33.2 pg (25.0-34.0) 03/19/23 06:50 MCHC 33.4 g/dL (32.0-36.0) 03/19/23 06:50 RDW Std Deviation 43.4 fL (36.4-46.3) 03/19/23 06:50 RDW Coeff of Hillary 11.9 % (11.5-14.5) 03/19/23 06:50 Plt Count 236 K/uL (130-400) 03/19/23 06:50 MPV 9.5 fL (9.4-12.4) 03/19/23 06:50 Immature Gran % (Auto) 0.4 % 03/15/23 14:37 Neut % (Auto) 63.1 % 03/15/23 14:37 Lymph % (Auto) 23.1 % 03/15/23 14:37 Stanly % (Auto) 8.6 % 03/15/23 14:37 Eos % (Auto) 4.5 % 03/15/23 14:37 Baso % (Auto) 0.3 % 03/15/23 14:37 Neut # (Auto) 4.54 K/uL (1.40-6.50) 03/15/23 14:37 Lymph # (Auto) 1.66 K/uL (1.2-3.4) 03/15/23 14:37 Stanly # (Auto) 0.62 K/uL (0.11-0.59) H 03/15/23 14:37 Eos # (Auto) 0.32 K/uL (0-0.50) 03/15/23 14:37 Baso # (Auto) 0.02 K/uL (0-0.2) 03/15/23 14:37 Immature Gran # (Auto) 0.03 K/uL (0.01-0.20) 03/15/23 14:37 ESR 72 mm/hr (0-20) H 03/15/23 14:37 Sodium 138 mmol/L (136-145) 03/19/23 06:50 Potassium 4.3 mmol/L (3.5-5.1) 03/19/23 06:50 Chloride 106 mmol/L (98-107) 03/19/23 06:50 Carbon Dioxide 27 mmol/L (21-32) 03/19/23 06:50 Anion Gap 5 (3-11) 03/19/23 06:50 BUN 9 mg/dl (6-23) 03/19/23 06:50 Creatinine 0.95 mg/dl (0.6-1.4) 03/19/23 06:50 Est Cr Clr Drug Dosing 107.0 ml/min 03/19/23 06:50 Est GFR ( Amer) 101.9 ml/min 03/19/23 06:50 Est GFR (Non-Af Amer) 87.9 ml/min 03/19/23 06:50 BUN/Creatinine Ratio 9.5 (10-20) L 03/19/23 06:50 Glucose 104 mg/dl (70-99(Fasting)) H 03/19/23 06:50 Estimat Average Glucose 111 mg/dl 03/16/23 06:11 Hemoglobin A1c 5.5 % (4.5-5.6) 03/16/23 06:11 Calcium 9.1 mg/dl (8.6-10.3) 03/19/23 06:50 Total Bilirubin 0.3 mg/dl (0.2-1.0) 03/15/23 14:37 AST 17 U/L (13-39) 03/15/23 14:37 ALT 13 U/L (7-52) 03/15/23 14:37 Alkaline Phosphatase 87 U/L (34-104) 03/15/23 14:37 C-Reactive Protein 4.45 mg/dl (0-0.5) H 03/15/23 14:37 Total Protein 8.2 gm/dl (6.0-8.3) 03/15/23 14:37 Albumin 3.9 gm/dl (3.4-5.0) 03/15/23 14:37 Globulin 4.3 gm/dl (2.5-4.0) H 03/15/23 14:37 Albumin/Globulin Ratio 0.9 (0.9-2) 03/15/23 14:37 Procalcitonin 0.06 ng/ml (0-0.5) 03/15/23 14:37 Random Vancomycin 11.9 mcg/ml (10-20) 03/19/23 06:50 SARS-CoV-2, RNA, NAAT NEGATIVE (NEGATIVE) 03/15/23 17:00 Impressions Foot X-Ray 03/15/23 16:16 LEFT FOOT 3 VIEWS CLINICAL HISTORY: Cellulitis. Swelling. FINDINGS: 3 views of the left foot are obtained. No prior studies are available for comparison at the time of dictation. The skeletal structures are osteopenic. There is an acute appearing displaced fracture through the distal shaft of the fifth proximal phalanx. Erosive destructive change is seen at the third metatarsophalangeal joint. This is highly suspicious for osteomyelitis. Erosive permeative changes also seen of the fifth proximal phalanx. There is age- indeterminate erosive change involving the tuft of the second distal phalanx and the base of the second proximal phalanx. There are numerous tiny bony fragments throughout the second and third toes. Advanced osteoarthritic changes seen at the first metatarsophalangeal joint. Milder degenerative changes seen throughout the midfoot. There is a large plantar heel spur. Diffuse soft tissue edema is noted throughout the forefoot. There are tiny foci of gas within the fifth toe. IMPRESSION: 1. There is an acute appearing displaced fracture through the head of the fifth proximal phalanx. This may be pathologic. 2. Erosive change at the third metatarsophalangeal joint as well as permeative change in the fifth proximal phalanx are highly suspicious for osteomyelitis. There is age indeterminate erosive change involving the tuft of the second distal phalanx and the base of the second proximal phalanx. Correlate with any prior outside imaging studies. 3. Diffuse soft tissue edema throughout the foot suggests cellulitis. Correlate clinically. 4. Degenerative change and large plantar heel spur as above. Dictated: 03/15/2023 6:17 PM Transcribed: 03/15/2023 6:33 PM Lana [id number] BRITTANEY_Candido [id number] Electronically signed by: Humberto Huber M.D. 03/15/2023 7:06 PM Foot MRI 03/15/23 17:02 Exam(s): MRI LEFT FOOT W/WO Contrast IV Amt: 11cc gadavist EXAM: MR Left Lower Extremity Without and With Intravenous Contrast, Foot CLINICAL HISTORY: Reason for exam: eval for osteomyelitis. TECHNIQUE: Multiplanar magnetic resonance images of the left foot without and with intravenous contrast. CONTRAST: Patient received 11cc gadavist of IV contrast COMPARISON: No relevant prior studies available. FINDINGS: Soft tissue ulcer/cellulitis involving the second toe. Severe osteomyelitis of the entire second toe, with erosive changes throughout the entire toe including the metatarsal head which is fragmented. Soft tissue ulcer/cellulitis involving the third toe. Severe osteomyelitis of the entire third toe, with erosive changes throughout the entire toe including resorption of the third metatarsal head. Edema extends into the third metatarsal diaphysis. Soft tissue ulcer/cellulitis involving the fifth toe. Severe osteomyelitis of the fifth toe, with erosive changes throughout the middle and distal phalanx. Severe degenerative changes of the first MTP. Impression: Severe osteomyelitis of the second, third, and fifth rays, as described. Electronically signed by: Jean Carlos Lopez MD 03/16/23 00:40 AM Venous Doppler Study 03/15/23 17:02 ULTRASOUND LEFT LOWER EXTREMITY VENOUS CLINICAL HISTORY: Left leg swelling and erythema. COMPARISON STUDY: Left lower extremity venous ultrasound dated 03/15/2013. TECHNIQUE: Real-time, grayscale, and color Doppler sonography of the deep veins of the left lower extremity was performed from the inguinal crease to the calf. Compression and augmentation were utilized. FINDINGS: There is no sonographic evidence of deep venous thrombosis identified in the left lower extremity. The common femoral, superficial femoral, and popliteal veins are patent and normally compressible. The greater saphenous vein and the profunda femoris vein at the junction with the common femoral vein are clear. The visualized calf veins are patent. Enlarged left inguinal lymph nodes are reactive. IMPRESSION: 1 There is no sonographic evidence of deep venous thrombosis identified in the left lower extremity. 2. Enlarged left inguinal lymph nodes are likely reactive. Correlate clinically. ACT 112: Negative or not required by law. Electronically signed by: Humberto Huber M.D. 03/15/2023 7:30 PM Chest X-Ray 03/15/23 19:21 XR chest 1V portable CLINICAL HISTORY: admission, possible preop COMPARISON STUDY: No previous studies for comparison. FINDINGS: Lung volumes are normal. Lungs are clear. There is no pneumothorax or pleural effusion. There is borderline cardiomegaly. Mediastinal contours are normal. There is no evidence for pulmonary edema. IMPRESSION: No acute cardiopulmonary findings. ACT 112: Negative or not required by law. Electronically signed by: Calvin Barahona M.D. 03/16/2023 7:50 AM
--- NOTE | 2023-03-19 13:59 | Anesthesiology Consultation ---
Date of Service March 19, 2023 Assessment & Plan Chart Review Chart Review: train braker initiated History Surgery Operation Date: 03/16/23 07:00 Proposed Procedures p Left Foot Amputation Transmetatarsal - Saurabh Garzon DPM, MS Operation Date: 03/20/23 07:30 Proposed Procedures p Left Foot Wash Out and Delayed Primary Closure - Saurabh Garzon DPM, MS Height/Weight Height: 5 ft 9 in Weight: 117 kg Allergies Allergy/AdvReac Type Severity Reaction Status Date / Time house dust Allergy Intermediate SNEEZING, Verified 03/15/23 15:57 CONGESTION Medications Home Medications Medication Instructions Recorded Confirmed Last Taken acetaminophen 500 mg tablet 1,000 mg PO DIRECTED PRN Pain 03/15/23 03/15/23 03/14/23 (Tylenol Extra Strength) ibuprofen 200 mg tablet (Advil) 400 mg PO DIRECTED PRN Pain 03/15/23 03/15/23 03/14/23 Active Medications Generic Name Dose Route Start Last Admin Trade Name Freq PRN Reason Stop Dose Admin Acetaminophen 650 mg 03/16/23 18:42 03/17/23 05:40 Acetaminophen 325 Mg Tab PO 04/15/23 18:41 650 mg Q4H PRN Administration mild pain Amlodipine Besylate 5 mg 03/15/23 21:40 03/18/23 20:11 Amlodipine Besylate 5 Mg Tab PO 04/14/23 21:39 5 mg HS CHATO Administration Folic Acid 1 mg 03/16/23 09:00 03/19/23 08:39 Folic Acid 1 Mg Tab PO 04/15/23 08:59 1 mg QAM CHATO Administration Heparin Sodium (Porcine) 5,000 units 03/17/23 14:00 03/19/23 06:46 Heparin Sod 5,000 Unit/0.5 Ml Vial SQ 04/16/23 13:59 5,000 units Q8 CHATO Administration Piperacillin Sod/Tazobactam 120 mls @ 30 mls/hr 03/16/23 02:00 03/19/23 12:58 Sod 4.5 gm/ Dextrose IV 03/23/23 01:59 30 mls/hr Q8H CHATO Administration Protocol Miscellaneous 1 each 03/16/23 08:59 03/19/23 08:41 Remove Nicoderm Patch N/A 04/15/23 08:58 1 each DAILY@0859 CHATO Administration Nicotine 21 mg 03/16/23 09:00 03/19/23 08:43 Nicotine 21 Mg/24 Hr Tdsy TD 04/15/23 08:59 21 mg QAM CHATO Administration Oxycodone HCl 5 mg 03/16/23 18:42 03/18/23 22:17 Oxycodone Hcl Ir 5 Mg Tab (Immediate Release) PO 03/30/23 18:41 5 mg Q6H PRN Administration Pain Thiamine HCl 100 mg 03/16/23 09:00 03/19/23 08:39 Thiamine Hcl 100 Mg Tab PO 04/15/23 08:59 100 mg QAM CHATO Administration NPO Date Last Intake of Fluids: 03/15/23 Time Last Intake of Fluids: 20:00 Date Last Intake of Solids: 03/15/23 Time Last Intake of Solids: 20:00 Past Medical History Medical History Alcohol use disorder Tobacco use disorder Uncontrolled hypertension Past Family History Family History Father Stroke Mother Breast cancer Past Surgical History Surgical History No significant past surgical history Social History Smoking Status: Current every day smoker tobacco type: cigarettes Smoking cigarettes per day: 1.5 ppd Do You Dip or Chew Tobacco: No Hx Alcohol Use: Yes Alcohol type: hard liquor alcohol intake frequency: 3 or more drinks per day Hx Substance Use: No Physical Exam Vital Signs Last Vital Signs Temp 97.7 F 03/19/23 07:49 Pulse 59 L 03/19/23 07:49 Resp 16 03/19/23 07:49 BP 100/70 03/19/23 07:49 Pulse Ox 98 03/19/23 07:49 O2 Del Method Room Air 03/19/23 07:49 O2 Flow Rate 2 03/16/23 17:30 Testing Laboratory Results 03/19/23 06:50 03/19/23 06:50 Hemoglobin A1c 5.5 % (4.5-5.6) 03/16/23 06:11 03/16/23 16:55 Gram Stain - Final Foot,Left Aerobic and Anaerobic Culture - Preliminary Staphylococcus aureus 03/15/23 21:37 Gram Stain - Final Toe,Left Fifth Wound Culture - Final Staphylococcus aureus Non-front end application developer species 03/15/23 16:54 Aerobic Blood Culture - Preliminary Blood No growth in Aerobic bottle after 48 hours. Anaerobic Blood Culture - Preliminary No growth in Anaerobic bottle after 48 hours. 03/15/23 16:20 Aerobic Blood Culture - Preliminary Blood No growth in Aerobic bottle after 48 hours. Anaerobic Blood Culture - Preliminary No growth in Anaerobic bottle after 48 hours. Electrocardiogram Date: 03/15/23 Findings: + NSR @ Chest X-Ray Date: 03/15/23 Findings: + NAD
[2023-03-19] MEDS: amLODIPine BESYLATE 5 MG TAB PO SCH (20:12)
[2023-03-20] MEDS: PIPERACILLIN/TAZOBACTAM 4.5 GM in DEXTROSE 5% 100 ML IV SCH ×3 (05:14→20:18)
[2023-03-20 07:00] LABS: Basophils # (auto) 0.04 K/uL (0-0.2); Basophils % (auto) 0.6 %; Eosinophils # (auto) 0.26 K/uL (0-0.50); Eosinophils % (auto) 3.6 %; Hematocrit (blood only) 39.4 % (42.0-52.0); Hemoglobin 13.2 g/dl (14.0-18.0); Immature Granulocytes # (auto) 0.02 K/uL (0.01-0.20); Immature Granulocytes % (auto) 0.3 %; Lymphocytes % (auto) 20.9 %; Mean Corpuscular Hemoglobin 32.4 pg (25.0-34.0); Mean Corpuscular Hgb Conc 33.5 g/dL (32.0-36.0); Mean Corpuscular Volume 96.6 fL (80.0-100.0); Mean Platelet Volume 9.5 fL (9.4-12.4); Monocytes # (auto) 0.57 K/uL (0.11-0.59); Neutrophils # (auto) 4.77 K/uL (1.40-6.50); Neutrophils % (auto) 66.6 %; Platelet Count 248 K/uL (130-400); RDW Coefficient of Variation 11.7 % (11.5-14.5); RDW Standard Deviation 41.6 fL (36.4-46.3); Red Blood Count 4.08 M/uL (4.70-6.10); White Blood Count 7.16 K/ul (4.8-10.8)
[2023-03-20] MEDS ORDERED: BUPIVACAINE 0.5 % 5 MG/1 ML MPF 30ML VIAL ONE (07:19)
[2023-03-20 07:20] LABS: Calcium 9.1 mg/dl (8.6-10.3); Creatinine Clr Calc Pharmacy 110.4 ml/min; Est GFR (African American) 105.9 ml/min; Est GFR (Non-African American) 91.4 ml/min; Potassium 4.4 mmol/L (3.5-5.1)
[2023-03-20] MEDS ORDERED: BUPIVACAINE/EPINEPHRINE 0.5% MPF 1:200,000 30 ML VIAL ONE (07:21)
[2023-03-20] MEDS ORDERED: LIDOCAINE 2% 2 ML VIAL/AMP(20MG/ML) INFIL ONE (07:25)
[2023-03-20] MEDS ORDERED: PROPOFOL IV EMULSION 10 MG/ML 20 ML VIAL IV ONE ×2 (07:25→08:08)
[2023-03-20] MEDS ORDERED: fentaNYL citrate PF 100 MCG/2 ML VIAL ONE (07:26)
[2023-03-20] MEDS ORDERED: MIDAZOLAM HCL 1 MG/ML 2ML VIAL ONE (07:26)
[2023-03-20] MEDS ORDERED: ONDANSETRON INJ 2 MG/ML 2 ML VIAL IV PRN (07:29)
[2023-03-20] MEDS ORDERED: ATROPINE SULFATE 0.1 MG/ML 10ML SYR IV PRN (07:29)
[2023-03-20] MEDS ORDERED: ePHEDrine sulfate 50 MG/ML AMP IV PRN (07:29)
[2023-03-20] MEDS ORDERED: fentaNYL citrate PF 100 MCG/2 ML VIAL IV PRN (07:29)
--- NOTE | 2023-03-20 07:33 | History & Physical Bridge Note ---
Date of Service March 20, 2023 History & Physical Bridge Note I have examined the patient, reviewed the History & Physical and in the interval since the performance of the History & Physical I have noted the following changes of clinical significance: no changes noted
--- NOTE | 2023-03-20 08:50 | Post Operative Brief Note ---
Immediate Post Op Note v1 Date of Surgery March 20, 2023 Pre & Post Diagnosis Operation Date: 03/20/23 07:30 Pre-Op Diagnosis: Left Foot Wound, Left Foot Cellulitis, Left Foot Osteomyelitis Post-Op Diagnosis: Left Foot Wound, Left Foot Cellulitis, Left Foot Osteomyelitis I identified the patient and participated in the time-out.: Yes Procedure Operation Date: 03/20/23 07:30 Actual Procedures p Left Foot Wash Out and Delayed Primary Closure(Left) - Saurabh Garzon DPM, MS Surgeon Saurabh Garzon DPM, MS Leather Skinner None Estimated Blood Loss 10 Findings Consistent with Post-Op Diagnosis none
--- NOTE | 2023-03-20 09:22 | Anesthesiology Progress Note ---
Date of Service March 20, 2023 Anesthesia Post Procedure Vital Signs Vital Signs: Temp Pulse Pulse Resp BP BP Pulse Ox 03/20/23 09:15 57 L 22 136/82 96 03/20/23 09:05 72 18 138/95 98 03/20/23 08:55 74 17 133/81 98 03/20/23 08:46 96.8 F L 71 18 120/80 99 03/19/23 19:50 03/19/23 19:54 98.4 F 64 18 127/81 97 03/19/23 14:58 97.3 F L 65 18 122/73 96 O2 Del Method O2 Flow Rate 03/20/23 09:15 Room Air 03/20/23 09:05 Oxymask 2 03/20/23 08:55 Oxymask 4 03/20/23 08:46 Oxymask 6 03/19/23 19:50 Room Air 03/19/23 19:54 Room Air 03/19/23 14:58 Room Air Pain Intensity Left Foot: Pain Intensity: 4 Transfer of Care Handoff Completed per policy Notes Mental Status: alert / awake / arousable and participated in evaluation Patient Amnestic to Procedure: Yes Nausea / Vomiting: adequately controlled Pain: adequately controlled Airway Patency, RR, SpO2: stable & adequate BP & HR: stable & adequate Hydration State: stable & adequate Anesthetic Complications: no major complications apparent and Pt Satisfied with anesthetic care
[2023-03-20] MEDS: THIAMINE HCL 100 MG TAB PO SCH (09:55)
[2023-03-20] MEDS: NICOTINE 21 MG/24 HR TDSY TD SCH (09:55)
[2023-03-20] MEDS: FOLIC ACID 1 MG TAB PO SCH (09:56)
[2023-03-20] MEDS: HEPARIN SOD 5,000 UNIT/0.5 ML VIAL SQ SCH ×2 (13:13→22:02)
--- NOTE | 2023-03-20 15:58 | Hospitalist Progress Note ---
Date of Service March 20, 2023 Assessment & Plan (1) Wound of left foot: (2) Cellulitis of left foot: Plan: This is a 57yo M with a PMH of uncontrolled HTN and no other known medical problems who presents with L foot wound and LLE cellulitis. Ongoing LLE cellulitis with worsening pain and swelling to L foot wound over past 2 months Patient noncompliant patient, does not follow with a PCP or take scheduled medications Afebrile, no leukocytosis, ESR 72, CRP 4.45, procal negative Foot XR with 1. There is an acute appearing displaced fracture through the head of the fifth proximal phalanx. This may be pathologic. 2. Erosive change at the third metatarsophalangeal joint as well as permeative change in the fifth proximal phalanx are highly suspicious for osteomyelitis. 3. Diffuse soft tissue edema throughout the foot suggests cellulitis. Correlate clinically. 4. Degenerative change and large plantar heel spur as above. Venous doppler r/o DVT in LLE POD#4 s/p Left Foot Amputation Transmetatarsal(Left) by Dr. Garzon with delayed primary closure of left foot Patient underwent left foot washout and delayed primary closure on 03/20 Intra-Op culture positive for Staph aureus; sensitive to Bactrim, vancomycin, oxacillin. Bacteroides vulgatus. Infectious disease consulted; plan for total of 6 weeks of therapy, p.o. or IV depending on results. Continue Zosyn. NWB LLE with fall precautions, OT/PT consulted and recommend rehab (3) Tobacco use disorder: Plan: Smokes 1 ppd. Nicotine patch ordered. Smoking cessation recommended (4) Alcohol use disorder: Plan: Endorses 4-5 shots of rum and a few beers nightly, last drink 1800 a day prior to admission. Denies h/o withdrawal but drinks every day AWSS withdrawal precautions with gabapentin protocol and PRN IV ativan Thiamine and folic acid supplementation DVT Ppx: Heparin Code status: FULL PCP: does not follow with a PCP Dispo: Admitted to [facility] Please note the above document was generated using voice recognition software. It may contain grammatical, syntax or spelling errors. Any formal questions or concerns about the content, text or information contained within the body of this dictation should be directly addressed to the provider for clarification Admission and Anticipated Discharge Date Admission Date: March 15, 2023 Subjective Patient seen and examined after the procedure. He is lying on the bed comfortably; not in distress. Denies fever or chills. Hemodynamically stable and saturating well on room air. Review of Systems Review of Systems: All systems reviewed & are unremarkable except as noted in Subjective Physical Exam Physical Exam: Constitutional: WD/WN, vitals as above, NAD, sitting up in bed, pleasant, conversing easily Respiratory: normal respiratory effort, lungs clear to auscultation, no wheeze, rales, rhonchi. Normal insp/exp effort, no accessory muscle use Cardiovascular: RRR, no murmur, no edema Vessels: no JVD or carotid bruit Chest: normal inspection of chest Abdomen: normal bowel sounds, soft, nontender, no hepatosplenomegaly Musculoskeletal: Dressing in place over left foot. Clean dry and intact. Skin: no rashes, warm and dry normal turgor Neurologic: PERRL, EOMI, accommodation nl, no face palsy, no dysarthria CN's II- XI intact bilaterally and moves all extremities Psychiatric: A+Ox3, euthymic affect Results & Data Results & Data Vital Signs (Past 12 Hours) Vital Signs Temp Pulse Pulse Resp BP Pulse Ox O2 Del Method 03/20/23 12:47 36.8 C 63 16 121/72 96 Room Air 03/20/23 11:46 36.3 C L 75 16 143/80 H 96 Room Air 03/20/23 10:50 36.4 C L 73 16 132/74 98 Room Air 03/20/23 10:17 36.7 C 70 16 144/83 H 90 Room Air 03/20/23 09:45 36.8 C 58 L 16 126/79 99 Room Air 03/20/23 09:35 56 L 15 122/67 99 Room Air 03/20/23 09:25 36.6 C 57 L 21 133/78 98 Room Air 03/20/23 09:15 57 L 22 136/82 96 Room Air 03/20/23 09:05 72 18 138/95 98 Oxymask 03/20/23 08:55 74 17 133/81 98 Oxymask 03/20/23 08:46 36 C L 71 18 120/80 99 Oxymask O2 Flow Rate 03/20/23 12:47 03/20/23 11:46 03/20/23 10:50 03/20/23 10:17 03/20/23 09:45 03/20/23 09:35 03/20/23 09:25 03/20/23 09:15 03/20/23 09:05 2 03/20/23 08:55 4 03/20/23 08:46 6 Laboratory Results Laboratory Results WBC 7.16 K/ul (4.8-10.8) 03/20/23 06:28 RBC 4.08 M/uL (4.70-6.10) L 03/20/23 06:28 Hgb 13.2 g/dl (14.0-18.0) L 03/20/23 06:28 Hct 39.4 % (42.0-52.0) L 03/20/23 06:28 MCV 96.6 fL (80.0-100.0) 03/20/23 06:28 MCH 32.4 pg (25.0-34.0) 03/20/23 06:28 MCHC 33.5 g/dL (32.0-36.0) 03/20/23 06:28 RDW Std Deviation 41.6 fL (36.4-46.3) 03/20/23 06:28 RDW Coeff of Hillary 11.7 % (11.5-14.5) 03/20/23 06:28 Plt Count 248 K/uL (130-400) 03/20/23 06:28 MPV 9.5 fL (9.4-12.4) 03/20/23 06:28 Immature Gran % (Auto) 0.3 % 03/20/23 06:28 Neut % (Auto) 66.6 % 03/20/23 06:28 Lymph % (Auto) 20.9 % 03/20/23 06:28 Wells % (Auto) 8.0 % 03/20/23 06:28 Eos % (Auto) 3.6 % 03/20/23 06:28 Baso % (Auto) 0.6 % 03/20/23 06:28 Neut # (Auto) 4.77 K/uL (1.40-6.50) 03/20/23 06:28 Lymph # (Auto) 1.50 K/uL (1.2-3.4) 03/20/23 06:28 Wells # (Auto) 0.57 K/uL (0.11-0.59) 03/20/23 06:28 Eos # (Auto) 0.26 K/uL (0-0.50) 03/20/23 06:28 Baso # (Auto) 0.04 K/uL (0-0.2) 03/20/23 06:28 Immature Gran # (Auto) 0.02 K/uL (0.01-0.20) 03/20/23 06:28 ESR 72 mm/hr (0-20) H 03/15/23 14:37 Sodium 137 mmol/L (136-145) 03/20/23 06:28 Potassium 4.4 mmol/L (3.5-5.1) 03/20/23 06:28 Chloride 105 mmol/L (98-107) 03/20/23 06:28 Carbon Dioxide 27 mmol/L (21-32) 03/20/23 06:28 Anion Gap 5 (3-11) 03/20/23 06:28 BUN 11 mg/dl (6-23) 03/20/23 06:28 Creatinine 0.92 mg/dl (0.6-1.4) 03/20/23 06:28 Est Cr Clr Drug Dosing 110.4 ml/min 03/20/23 06:28 Est GFR ( Amer) 105.9 ml/min 03/20/23 06:28 Est GFR (Non-Af Amer) 91.4 ml/min 03/20/23 06:28 BUN/Creatinine Ratio 12.0 (10-20) 03/20/23 06:28 Glucose 109 mg/dl (70-99(Fasting)) H 03/20/23 06:28 Estimat Average Glucose 111 mg/dl 03/16/23 06:11 Hemoglobin A1c 5.5 % (4.5-5.6) 03/16/23 06:11 Calcium 9.1 mg/dl (8.6-10.3) 03/20/23 06:28 Total Bilirubin 0.3 mg/dl (0.2-1.0) 03/15/23 14:37 AST 17 U/L (13-39) 03/15/23 14:37 ALT 13 U/L (7-52) 03/15/23 14:37 Alkaline Phosphatase 87 U/L (34-104) 03/15/23 14:37 C-Reactive Protein 4.45 mg/dl (0-0.5) H 03/15/23 14:37 Total Protein 8.2 gm/dl (6.0-8.3) 03/15/23 14:37 Albumin 3.9 gm/dl (3.4-5.0) 03/15/23 14:37 Globulin 4.3 gm/dl (2.5-4.0) H 03/15/23 14:37 Albumin/Globulin Ratio 0.9 (0.9-2) 03/15/23 14:37 Procalcitonin 0.06 ng/ml (0-0.5) 03/15/23 14:37 Random Vancomycin 11.9 mcg/ml (10-20) 03/19/23 06:50 SARS-CoV-2, RNA, NAAT NEGATIVE (NEGATIVE) 03/15/23 17:00 Impressions Foot X-Ray 03/15/23 16:16 LEFT FOOT 3 VIEWS CLINICAL HISTORY: Cellulitis. Swelling. FINDINGS: 3 views of the left foot are obtained. No prior studies are available for comparison at the time of dictation. The skeletal structures are osteopenic. There is an acute appearing displaced fracture through the distal shaft of the fifth proximal phalanx. Erosive destructive change is seen at the third metatarsophalangeal joint. This is highly suspicious for osteomyelitis. Erosive permeative changes also seen of the fifth proximal phalanx. There is age- indeterminate erosive change involving the tuft of the second distal phalanx and the base of the second proximal phalanx. There are numerous tiny bony fragments throughout the second and third toes. Advanced osteoarthritic changes seen at the first metatarsophalangeal joint. Milder degenerative changes seen throughout the midfoot. There is a large plantar heel spur. Diffuse soft tissue edema is noted throughout the forefoot. There are tiny foci of gas within the fifth toe. IMPRESSION: 1. There is an acute appearing displaced fracture through the head of the fifth proximal phalanx. This may be pathologic. 2. Erosive change at the third metatarsophalangeal joint as well as permeative change in the fifth proximal phalanx are highly suspicious for osteomyelitis. There is age indeterminate erosive change involving the tuft of the second distal phalanx and the base of the second proximal phalanx. Correlate with any prior outside imaging studies. 3. Diffuse soft tissue edema throughout the foot suggests cellulitis. Correlate clinically. 4. Degenerative change and large plantar heel spur as above. Dictated: 03/15/2023 6:17 PM Transcribed: 03/15/2023 6:33 PM Lana [id number] BRITTANEY_Candido [id number] Electronically signed by: Humberto Huber M.D. 03/15/2023 7:06 PM Foot MRI 03/15/23 17:02 Exam(s): MRI LEFT FOOT W/WO Contrast IV Amt: 11cc gadavist EXAM: MR Left Lower Extremity Without and With Intravenous Contrast, Foot CLINICAL HISTORY: Reason for exam: eval for osteomyelitis. TECHNIQUE: Multiplanar magnetic resonance images of the left foot without and with intravenous contrast. CONTRAST: Patient received 11cc gadavist of IV contrast COMPARISON: No relevant prior studies available. FINDINGS: Soft tissue ulcer/cellulitis involving the second toe. Severe osteomyelitis of the entire second toe, with erosive changes throughout the entire toe including the metatarsal head which is fragmented. Soft tissue ulcer/cellulitis involving the third toe. Severe osteomyelitis of the entire third toe, with erosive changes throughout the entire toe including resorption of the third metatarsal head. Edema extends into the third metatarsal diaphysis. Soft tissue ulcer/cellulitis involving the fifth toe. Severe osteomyelitis of the fifth toe, with erosive changes throughout the middle and distal phalanx. Severe degenerative changes of the first MTP. Impression: Severe osteomyelitis of the second, third, and fifth rays, as described. Electronically signed by: Jean Carlos Lopez MD 03/16/23 00:40 AM Venous Doppler Study 03/15/23 17:02 ULTRASOUND LEFT LOWER EXTREMITY VENOUS CLINICAL HISTORY: Left leg swelling and erythema. COMPARISON STUDY: Left lower extremity venous ultrasound dated 03/15/2013. TECHNIQUE: Real-time, grayscale, and color Doppler sonography of the deep veins of the left lower extremity was performed from the inguinal crease to the calf. Compression and augmentation were utilized. FINDINGS: There is no sonographic evidence of deep venous thrombosis identified in the left lower extremity. The common femoral, superficial femoral, and popliteal veins are patent and normally compressible. The greater saphenous vein and the profunda femoris vein at the junction with the common femoral vein are clear. The visualized calf veins are patent. Enlarged left inguinal lymph nodes are reactive. IMPRESSION: 1 There is no sonographic evidence of deep venous thrombosis identified in the left lower extremity. 2. Enlarged left inguinal lymph nodes are likely reactive. Correlate clinically. ACT 112: Negative or not required by law. Electronically signed by: Humberto Huber M.D. 03/15/2023 7:30 PM Chest X-Ray 03/15/23 19:21 XR chest 1V portable CLINICAL HISTORY: admission, possible preop COMPARISON STUDY: No previous studies for comparison. FINDINGS: Lung volumes are normal. Lungs are clear. There is no pneumothorax or pleural effusion. There is borderline cardiomegaly. Mediastinal contours are normal. There is no evidence for pulmonary edema. IMPRESSION: No acute cardiopulmonary findings. ACT 112: Negative or not required by law. Electronically signed by: Calvin Barahona M.D. 03/16/2023 7:50 AM
[2023-03-20] MEDS: MAGNESIUM HYDROXIDE SUSP 30 ML UDC PO SCH (16:02)
[2023-03-20] MEDS: oxyCODONE HCL IR 5 MG TAB (IMMEDIATE RELEASE) PO PRN (16:07)
--- NOTE | 2023-03-20 18:16 | Operative Report ---
Post Operative Report Pre & Post Diagnosis Operation Date: 03/20/23 07:30 Pre-Op Diagnosis: Left Foot Wound, Left Foot Cellulitis, Left Foot Osteomyelitis Post-Op Diagnosis: Left Foot Wound, Left Foot Cellulitis, Left Foot Osteomyelitis I identified the patient and participated in the time-out.: Yes Procedure Operation Date: 03/20/23 07:30 Actual Procedures p Left Foot Wash Out and Delayed Primary Closure(Left) - Saurabh Garzon DPM, MS Surgeon Saurabh Garzon DPM, MS Lead Infrastructure Architect None Estimated Blood Loss 10 Findings Consistent with Post-Op Diagnosis None Specimens none Description of Procedure History of present illness: Patient is a 57 year old male who is seen for delayed primary closure. Patient is status post transmetatarsal amputation of left foot. Due to infection wound was left open. Soft tissue has demarcated. All questions answered. Discussed procedure in detail and postoperative recovery. All potential risks, benefits, complications, alternatives, rehab, potential for incomplete relief of symptoms, need for further surgery, DVT, PE, , persistent pain, swelling, scarring, weakness, neurovascular, wound complications and potential for amputations were discussed with patient. Unwanted outcomes such as, but not limited to were reviewed including under correction, overcorrection, return of deformity, infection. All questions were answered. Patient has decided to proceed with procedure as indicated. Preoperative diagnosis: 1.) Left foot wound, open transmetatarsal amputation Postoperative diagnosis: same Name of operation: 1.) Debridement of left foot wound, revision of transmetatarsal 2.)Secondary closure of surgical wound extensive left foot Surgeon: Dr. Garzon Lead Infrastructure Architect: None Anesthesia: Monitored anesthesia care Hemostasis: pneumatic ankle tourniquet Estimated blood loss: minimal Procedure in detail: Under mild sedation the patient was brought in the operating room placed on the operating table in supine position. A pneumatic ankle tourniquet was then placed about the patient's left ankle Following IV sedation, local anesthesia was obtained about the left foot using 1% lidocaine with 1:200,000 epipherine. The foot was then prepped, scrubbed, and draped in usual aseptic manner. An Esmarch bandage was utilized to exsanguinate the patient's left foot and pneumatic ankle tourniquet was then inflated. Attention was then directed to a large surgical deficit of the left foot. The Patient is status post transmetatarsal amputation. The wound measures 11 cm x 8 cm x 5 cm. The wound bed shows 60% necrotic or non viable tissue well demarcated. Utilizing a sharp, sterile, #15 blade the wound is voided of non viable soft tissue. Due to lack of viable soft tissue available for closure metatarsals 1, 2, 3, 4, and 5 must be further resected with an oscillating bone saw. Excisional debridement is then carried down to and including muscle and tendon to achieve a healthy wound bed with a sterile #15 blade. 1 Liter of lactate ringer was then irrigated with into the wound. A plantar rotational skin plasty is utilized in order to further gain coverage. At this time wound is closed in layers. Vertical mattress sutures are applied distal to wound as retention sutures utilizing 2-0 nylon. More proximal to wound edges vertical mattress sutures are applied. Finally wound edges are re-approximated using 3-0 nylon with simple suture technique. The pneumatic ankle torniquet was then deflated and a prompt hyperemic response was noted to the tissue. Upon completion of the procedure the lateral wound was dressed with sterile dressing consisting of 4 x 4's Klarissa Kerlix ABD. The Patient tolerated the procedure and anesthesia well. He was transferred to recovery room vital signs stable and vascular status intact all toes of the left foot following. Following a period of postoperative monitoring the patient will be readmitted to floor with the continuation of all preoperative orders. I attest to the content of the Intraoperative Record and any orders documented therein. Any exceptions are noted below.
[2023-03-20] MEDS: ACETAMINOPHEN 325 MG TAB PO PRN (20:18)
[2023-03-20] MEDS: amLODIPine BESYLATE 5 MG TAB PO SCH (20:18)
[2023-03-21] MEDS: oxyCODONE HCL IR 5 MG TAB (IMMEDIATE RELEASE) PO PRN (02:25)
[2023-03-21] MEDS: HEPARIN SOD 5,000 UNIT/0.5 ML VIAL SQ SCH ×3 (05:16→20:43)
[2023-03-21] MEDS: PIPERACILLIN/TAZOBACTAM 4.5 GM in DEXTROSE 5% 100 ML IV SCH ×2 (05:17→12:13)
[2023-03-21 08:07] LABS: Basophils # (auto) 0.03 K/uL (0-0.2); Basophils % (auto) 0.4 %; Eosinophils % (auto) 3.5 %; Hematocrit (blood only) 37.6 % (42.0-52.0); Hemoglobin 12.5 g/dl (14.0-18.0); Immature Granulocytes # (auto) 0.03 K/uL (0.01-0.20); Immature Granulocytes % (auto) 0.4 %; Lymphocytes # (auto) 1.54 K/uL (1.2-3.4); Lymphocytes % (auto) 18.2 %; Mean Corpuscular Hemoglobin 32.4 pg (25.0-34.0); Mean Corpuscular Hgb Conc 33.2 g/dL (32.0-36.0); Mean Corpuscular Volume 97.4 fL (80.0-100.0); Mean Platelet Volume 9.5 fL (9.4-12.4); Monocytes # (auto) 0.88 K/uL (0.11-0.59); Monocytes % (auto) 10.4 %; Neutrophils # (auto) 5.69 K/uL (1.40-6.50); Neutrophils % (auto) 67.1 %; Platelet Count 253 K/uL (130-400); RDW Coefficient of Variation 11.8 % (11.5-14.5); RDW Standard Deviation 42.4 fL (36.4-46.3); Red Blood Count 3.86 M/uL (4.70-6.10); White Blood Count 8.47 K/ul (4.8-10.8)
[2023-03-21 08:15] LABS: BUN Creatinine Ratio 13.1 (10-20); C Reactive Protein 10.31 mg/dl (0-0.5); Calcium 9.1 mg/dl (8.6-10.3); Creatinine Clr Calc Pharmacy 102.6 ml/min; Est GFR (African American) 96.9 ml/min; Est GFR (Non-African American) 83.6 ml/min; Potassium 4.5 mmol/L (3.5-5.1)
[2023-03-21] MEDS: FOLIC ACID 1 MG TAB PO SCH (08:15)
[2023-03-21] MEDS: MAGNESIUM HYDROXIDE SUSP 30 ML UDC PO SCH (08:17)
[2023-03-21] MEDS: THIAMINE HCL 100 MG TAB PO SCH (08:17)
[2023-03-21] MEDS: NICOTINE 21 MG/24 HR TDSY TD SCH (08:18)
[2023-03-21] MEDS: levoFLOXacin 750 MG TAB PO SCH (14:04)
--- NOTE | 2023-03-21 17:25 | Hospitalist Progress Note ---
Date of Service March 21, 2023 Assessment & Plan (1) Osteomyelitis of left foot: (2) Wound of left foot: (3) Cellulitis of left foot: Plan: This is a 57yo M with a PMH of uncontrolled HTN and no other known medical problems who presented with ongoing LLE cellulitis with worsening pain and swelling to L foot wound over past 2 months. History of noncompliance, does not follow with PCP or take prescribed medications. On presentation -- afebrile, no leukocytosis, ESR 72, CRP 4.45, procal negative Left Foot XR: 1. There is an acute appearing displaced fracture through the head of the fifth proximal phalanx. This may be pathologic. 2. Erosive change at the third metatarsophalangeal joint as well as permeative change in the fifth proximal phalanx are highly suspicious for osteomyelitis. 3. Diffuse soft tissue edema throughout the foot suggests cellulitis. Correlate clinically. 4. Degenerative change and large plantar heel spur as above. Venous doppler negative DVT in LLE POD#5 s/p Left Foot Amputation Transmetatarsal(Left) and POD#1 delayed primary closure by Dr. Garzon. On Zosyn Intraoperative culture growing MSSA, bacteroides vulgatus, Finegoldia magna. Discussed with ID Dr. Hernández for antibiotic recs --recommends PO clindamycin 300 mg QID and PO levofloxacin 750 mg daily 6 weeks. DC Zosyn and start p.o. antibiotics today. NWB LLE with fall precautions, OT/PT consulted and recommend rehab HTN Started on amlodipine BP controlled (4) Tobacco use disorder: Plan: Smokes 1 ppd. Nicotine patch ordered. Smoking cessation recommended (5) Alcohol use disorder: Plan: Endorses 4-5 shots of rum up to a full bottle nightly No signs of alcohol withdrawal Monitor closely Thiamine and folic acid supplementation DVT PROPHYLAXIS SQ heparin Patient seen in collaboration with Dr. Xie. Admission and Anticipated Discharge Date Admission Date: March 15, 2023 Supervising Physician Co-Signing Physician Notes Patient seen and examined at bedside. Discussed with above provider. Patient is awaiting rehab placement. Infectious disease recommend Levaquin and clindamycin for 6 weeks. Discharge to rehab when placement available. Subjective Follow-up for left foot osteomyelitis s/p left foot transmetatarsal amputation on 03/16 and delayed primary closure on 03/20. Patient seen and examined. Doing well, offers no complaints. Reports pain is well controlled. Remains afebrile. Denies chest pain shortness of breath. No abdominal pain or nausea. Review of Systems Review of Systems: ROS per HPI, all other systems reviewed and negative Physical Exam Constitutional: WD/WN, vitals as above Respiratory: normal respiratory effort, lungs clear to auscultation Cardiovascular: Rate/Rhythm: regular rate and regular rhythm Vessels: normal peripheral pulses Extremities: no edema Gastrointestinal (Abdomen): normal bowel sounds, soft, nontender, no hepatosplenomegaly Musculoskeletal: S/p left foot transmetatarsal amputation, dressing CDI Skin: no rashes, warm and dry Neurologic: no focal motor deficits Psychiatric: A+Ox3, euthymic affect Results & Data Results & Data Vital Signs (Past 12 Hours) Vital Signs Temp Pulse Resp BP Pulse Ox O2 Del Method 03/21/23 14:36 36.9 C 57 L 16 112/70 97 Room Air 03/21/23 07:06 36.8 C 60 16 102/69 97 Room Air Laboratory Results Short CBC 03/21/23 Range/Units 07:29 WBC 8.47 (4.8-10.8) K/ul Hgb 12.5 L (14.0-18.0) g/dl Hct 37.6 L (42.0-52.0) % Plt Count 253 (130-400) K/uL BMP 03/21/23 07:29 Sodium 134 L Potassium 4.5 Chloride 101 Carbon Dioxide 28 BUN 13 Creatinine 0.99 Glucose 102 H Calcium 9.1
[2023-03-21] MEDS: CLINDAMYCIN HCL 150 MG CAP PO SCH ×2 (17:49→20:43)
[2023-03-21] MEDS: amLODIPine BESYLATE 5 MG TAB PO SCH (20:43)
[2023-03-22] MEDS: HEPARIN SOD 5,000 UNIT/0.5 ML VIAL SQ SCH ×2 (05:18→15:32)
[2023-03-22] MEDS: ACETAMINOPHEN 325 MG TAB PO PRN (06:20)
[2023-03-22 08:13] LABS: Basophils # (auto) 0.03 K/uL (0-0.2); Basophils % (auto) 0.4 %; Eosinophils % (auto) 5.8 %; Hematocrit (blood only) 39.2 % (42.0-52.0); Hemoglobin 13.2 g/dl (14.0-18.0); Immature Granulocytes # (auto) 0.03 K/uL (0.01-0.20); Immature Granulocytes % (auto) 0.4 %; Lymphocytes # (auto) 1.43 K/uL (1.2-3.4); Lymphocytes % (auto) 20.8 %; Mean Corpuscular Hemoglobin 32.8 pg (25.0-34.0); Mean Corpuscular Hgb Conc 33.7 g/dL (32.0-36.0); Mean Corpuscular Volume 97.3 fL (80.0-100.0); Mean Platelet Volume 9.3 fL (9.4-12.4); Monocytes # (auto) 0.65 K/uL (0.11-0.59); Monocytes % (auto) 9.5 %; Neutrophils # (auto) 4.33 K/uL (1.40-6.50); Neutrophils % (auto) 63.1 %; Platelet Count 281 K/uL (130-400); RDW Coefficient of Variation 11.8 % (11.5-14.5); RDW Standard Deviation 42.3 fL (36.4-46.3); Red Blood Count 4.03 M/uL (4.70-6.10); White Blood Count 6.87 K/ul (4.8-10.8)
[2023-03-22 08:37] LABS: BUN Creatinine Ratio 14.9 (10-20); Calcium 9.8 mg/dl (8.6-10.3); Creatinine Clr Calc Pharmacy 100.6 ml/min; Est GFR (African American) 94.6 ml/min; Est GFR (Non-African American) 81.6 ml/min; Potassium 4.8 mmol/L (3.5-5.1)
[2023-03-22] MEDS: FOLIC ACID 1 MG TAB PO SCH (09:19)
[2023-03-22] MEDS: CLINDAMYCIN HCL 150 MG CAP PO SCH ×2 (09:19→12:30)
[2023-03-22] MEDS: THIAMINE HCL 100 MG TAB PO SCH (09:19)
[2023-03-22] MEDS: MAGNESIUM HYDROXIDE SUSP 30 ML UDC PO SCH (09:19)
[2023-03-22] MEDS: NICOTINE 21 MG/24 HR TDSY TD SCH (09:20)
[2023-03-22] MEDS: levoFLOXacin 750 MG TAB PO SCH (12:29)
--- NOTE | 2023-03-22 13:29 | Discharge Summary ---
Date of Service March 22, 2023 Admission HPI Per Admitting Provider This is a 57yo M with a PMH of uncontrolled HTN and no other known medical problems who presents with L foot wound. Has had shelter cellulitis of L leg over past years and worsening swelling of L foot for 2 months. Had to cut a hole in his Right shoe because his feet were too swollen to fit. Denies any fall or bites. Has become more painful over past few days. Coworkers directed him to ED for further evaluation. Denies any known history of blood clots in legs. Denies any known history of CVA, DM II. Does not take any home medications and is not established with a PCP. Smokes 1 ppd and takes 4-5 shots of rum and a few beers daily. Admission Exam Per Admitting Provider NAD, well developed Lungs: CTA, no wheezing or crackles Cardiac: Normal S1/S2, no murmur Abd: ND, NT, soft MSK: L leg swelling and erythema, severe L foot swelling with 5thtoe ulcer (unable to stage) Psych: AAOx3, normal affect Principal Diagnosis Left Foot Wound and Osteomyelitis Discharge Exam Constitutional WD/WN, vitals as above Respiratory normal respiratory effort, lungs clear to auscultation Cardiovascular Rate/Rhythm: regular rate and regular rhythm Vessels: normal peripheral pulses Extremities: no edema Gastrointestinal (Abdomen) normal bowel sounds, soft, nontender, no hepatosplenomegaly Skin no rashes, warm and dry Dressing in place to left foot CDI Neurologic no focal motor deficits Psychiatric A+Ox3, euthymic affect Discharge Data Allergies Allergy/AdvReac Type Severity Reaction Status Date / Time house dust Allergy Intermediate SNEEZING, Verified 03/15/23 15:57 CONGESTION Consultations 03/15/23 16:16 Consult Podiatry Routine 03/17/23 08:20 Consult Infectious Diseases Routine Procedures Performed Operation Date: 03/20/23 07:30 Actual Procedures p Left Foot Wash Out and Delayed Primary Closure(Left) - JOSE KaiserM, MS Ordered Studies Laboratory Results WBC 6.87 K/ul (4.8-10.8) 03/22/23 07:48 RBC 4.03 M/uL (4.70-6.10) L 03/22/23 07:48 Hgb 13.2 g/dl (14.0-18.0) L 03/22/23 07:48 Hct 39.2 % (42.0-52.0) L 03/22/23 07:48 MCV 97.3 fL (80.0-100.0) 03/22/23 07:48 MCH 32.8 pg (25.0-34.0) 03/22/23 07:48 MCHC 33.7 g/dL (32.0-36.0) 03/22/23 07:48 RDW Std Deviation 42.3 fL (36.4-46.3) 03/22/23 07:48 RDW Coeff of Hillary 11.8 % (11.5-14.5) 03/22/23 07:48 Plt Count 281 K/uL (130-400) 03/22/23 07:48 MPV 9.3 fL (9.4-12.4) L 03/22/23 07:48 Immature Gran % (Auto) 0.4 % 03/22/23 07:48 Neut % (Auto) 63.1 % 03/22/23 07:48 Lymph % (Auto) 20.8 % 03/22/23 07:48 [place] % (Auto) 9.5 % 03/22/23 07:48 Eos % (Auto) 5.8 % 03/22/23 07:48 Baso % (Auto) 0.4 % 03/22/23 07:48 Neut # (Auto) 4.33 K/uL (1.40-6.50) 03/22/23 07:48 Lymph # (Auto) 1.43 K/uL (1.2-3.4) 03/22/23 07:48 [place] # (Auto) 0.65 K/uL (0.11-0.59) H 03/22/23 07:48 Eos # (Auto) 0.40 K/uL (0-0.50) 03/22/23 07:48 Baso # (Auto) 0.03 K/uL (0-0.2) 03/22/23 07:48 Immature Gran # (Auto) 0.03 K/uL (0.01-0.20) 03/22/23 07:48 ESR 108 mm/hr (0-20) H 03/21/23 07:29 Sodium 136 mmol/L (136-145) 03/22/23 07:48 Potassium 4.8 mmol/L (3.5-5.1) 03/22/23 07:48 Chloride 103 mmol/L (98-107) 03/22/23 07:48 Carbon Dioxide 30 mmol/L (21-32) 03/22/23 07:48 Anion Gap 3 (3-11) 03/22/23 07:48 BUN 15 mg/dl (6-23) 03/22/23 07:48 Creatinine 1.01 mg/dl (0.6-1.4) 03/22/23 07:48 Est Cr Clr Drug Dosing 100.6 ml/min 03/22/23 07:48 Est GFR ( Amer) 94.6 ml/min 03/22/23 07:48 Est GFR (Non-Af Amer) 81.6 ml/min 03/22/23 07:48 BUN/Creatinine Ratio 14.9 (10-20) 03/22/23 07:48 Glucose 111 mg/dl (70-99(Fasting)) H 03/22/23 07:48 Estimat Average Glucose 111 mg/dl 03/16/23 06:11 Hemoglobin A1c 5.5 % (4.5-5.6) 03/16/23 06:11 Calcium 9.8 mg/dl (8.6-10.3) 03/22/23 07:48 Total Bilirubin 0.3 mg/dl (0.2-1.0) 03/15/23 14:37 AST 17 U/L (13-39) 03/15/23 14:37 ALT 13 U/L (7-52) 03/15/23 14:37 Alkaline Phosphatase 87 U/L (34-104) 03/15/23 14:37 C-Reactive Protein 10.31 mg/dl (0-0.5) H 03/21/23 07:29 Total Protein 8.2 gm/dl (6.0-8.3) 03/15/23 14:37 Albumin 3.9 gm/dl (3.4-5.0) 03/15/23 14:37 Globulin 4.3 gm/dl (2.5-4.0) H 03/15/23 14:37 Albumin/Globulin Ratio 0.9 (0.9-2) 03/15/23 14:37 Procalcitonin 0.06 ng/ml (0-0.5) 03/15/23 14:37 Random Vancomycin 11.9 mcg/ml (10-20) 03/19/23 06:50 SARS-CoV-2, RNA, NAAT NEGATIVE (NEGATIVE) 03/15/23 17:00 Impressions Foot X-Ray 03/15/23 16:16 LEFT FOOT 3 VIEWS CLINICAL HISTORY: Cellulitis. Swelling. FINDINGS: 3 views of the left foot are obtained. No prior studies are available for comparison at the time of dictation. The skeletal structures are osteopenic. There is an acute appearing displaced fracture through the distal shaft of the fifth proximal phalanx. Erosive destructive change is seen at the third metatarsophalangeal joint. This is highly suspicious for osteomyelitis. Erosive permeative changes also seen of the fifth proximal phalanx. There is age-ind eterminate erosive change involving the tuft of the second distal phalanx and the base of the second proximal phalanx. There are numerous tiny bony fragments throughout the second and third toes. Advanced osteoarthritic changes seen at the first metatarsophalangeal joint. Milder degenerative changes seen throughout the midfoot. There is a large plantar heel spur. Diffuse soft tissue edema is noted throughout the forefoot. There are tiny foci of gas within the fifth toe. IMPRESSION: 1. There is an acute appearing displaced fracture through the head of the fifth proximal phalanx. This may be pathologic. 2. Erosive change at the third metatarsophalangeal joint as well as permeative change in the fifth proximal phalanx are highly suspicious for osteomyelitis. There is age indeterminate erosive change involving the tuft of the second distal phalanx and the base of the second proximal phalanx. Correlate with any prior outside imaging studies. 3. Diffuse soft tissue edema throughout the foot suggests cellulitis. Correlate clinically. 4. Degenerative change and large plantar heel spur as above. Dictated: 03/15/2023 6:17 PM Transcribed: 03/15/2023 6:33 PM Lana [id number] Aracelis [id number] Electronically signed by: Humberto Huber M.D. 03/15/2023 7:06 PM Foot MRI 03/15/23 17:02 Exam(s): MRI LEFT FOOT W/WO Contrast IV Amt: 11cc gadavist EXAM: MR Left Lower Extremity Without and With Intravenous Contrast, Foot CLINICAL HISTORY: Reason for exam: eval for osteomyelitis. TECHNIQUE: Multiplanar magnetic resonance images of the left foot without and with intravenous contrast. CONTRAST: Patient received 11cc gadavist of IV contrast COMPARISON: No relevant prior studies available. FINDINGS: Soft tissue ulcer/cellulitis involving the second toe. Severe osteomyelitis of the entire second toe, with erosive changes throughout the entire toe including the metatarsal head which is fragmented. Soft tissue ulcer/cellulitis involving the third toe. Severe osteomyelitis of the entire third toe, with erosive changes throughout the entire toe including resorption of the third metatarsal head. Edema extends into the third metatarsal diaphysis. Soft tissue ulcer/cellulitis involving the fifth toe. Severe osteomyelitis of the fifth toe, with erosive changes throughout the middle and distal phalanx. Severe degenerative changes of the first MTP. Impression: Severe osteomyelitis of the second, third, and fifth rays, as described. Electronically signed by: Jean Carlos Lopez MD 03/16/23 00:40 AM Venous Doppler Study 03/15/23 17:02 ULTRASOUND LEFT LOWER EXTREMITY VENOUS CLINICAL HISTORY: Left leg swelling and erythema. COMPARISON STUDY: Left lower extremity venous ultrasound dated 03/15/2013. TECHNIQUE: Real-time, grayscale, and color Doppler sonography of the deep veins of the left lower extremity was performed from the inguinal crease to the calf. Compression and augmentation were utilized. FINDINGS: There is no sonographic evidence of deep venous thrombosis identified in the left lower extremity. The common femoral, superficial femoral, and p opliteal veins are patent and normally compressible. The greater saphenous vein and the profunda femoris vein at the junction with the common femoral vein are clear. The visualized calf veins are patent. Enlarged left inguinal lymph nodes are reactive. IMPRESSION: 1 There is no sonographic evidence of deep venous thrombosis identified in the left lower extremity. 2. Enlarged left inguinal lymph nodes are likely reactive. Correlate clinically. ACT 112: Negative or not required by law. Electronically signed by: Humberto Huber M.D. 03/15/2023 7:30 PM Chest X-Ray 03/15/23 19:21 XR chest 1V portable CLINICAL HISTORY: admission, possible preop COMPARISON STUDY: No previous studies for comparison. FINDINGS: Lung volumes are normal. Lungs are clear. There is no pneumothorax or pleural effusion. There is borderline cardiomegaly. Mediastinal contours are normal. There is no evidence for pulmonary edema. IMPRESSION: No acute cardiopulmonary findings. ACT 112: Negative or not required by law. Electronically signed by: Calvin Barahona M.D. 03/16/2023 7:50 AM Hospital Course (1) Osteomyelitis of left foot: (2) Wound of left foot: (3) Cellulitis of left foot: This is a 57yo M with a PMH of uncontrolled HTN and no other known medical problems who presented with ongoing LLE cellulitis with worsening pain and swelling to L foot wound over past 2 months. History of noncompliance, does not follow with PCP or take prescribed medications. On presentation -- afebrile, no leukocytosis, ESR 72, CRP 4.45, procal negative Left Foot XR: 1. There is an acute appearing displaced fracture through the head of the fifth proximal phalanx. This may be pathologic. 2. Erosive change at the third metatarsophalangeal joint as well as permeative change in the fifth proximal phalanx are highly suspicious for osteomyelitis. 3. Diffuse soft tissue edema throughout the foot suggests cellulitis. Correlate clinically. 4. Degenerative change and large plantar heel spur as above. Venous doppler negative DVT in LLE POD#6 s/p Left Foot Amputation Transmetatarsal(Left) and POD#2 delayed primary closure by Dr. Garzon. Intraoperative culture growing MSSA, bacteroides vulgatus, Finegoldia magna. Discussed with ID Dr. Hernández for antibiotic recs --recommends PO clindamycin 300 mg QID and PO levofloxacin 750 mg daily 6 weeks. DC Zosyn and start p.o. antibiotics. Weekly CBC, CMP, CRP. Follow up with [facility] with fall precautions, OT/PT consulted and recommend rehab Dressing change instructions - 4x4, abd, kerlix, jam changed daily. Follow up with Dr. Gazron in 10 days HTN Started on amlodipine BP controlled (4) Tobacco use disorder: Smokes 1 ppd. Nicotine patch ordered. Smoking cessation recommended (5) Alcohol use disorder: Endorses 4-5 shots of rum up to a full bottle nightly No signs of alcohol withdrawal Monitor closely Thiamine and folic acid supplementation Total Time Total Time Spent Total Time Spent (In Minutes): 45 Discharge Plan Discharge Items Patient Disposition: Transfer Inpatient Rehab Fac Reason For Visit: Left Foot Wound Discharge Diagnosis: Osteomyelitis of Left Foot Activity: As commented below Non-emergency contact: Primary Care Provider and Surgeon Call non-emergency contact if: you have any medication questions, your symptoms worsen, your pain is not controlled and you have a fever Follow-up/Referrals: [facility] [Provider Group] (Follow up with [facility]) Curt Espinoza MD [Outside Practitioners] - 04/12/23 11:20 am (Date & Time 04/12/2023 11:20 AM Provider Curt Espinoza MD [facility] ) Saurabh Garzon, DPM, MS [Physician] - (Schedule follow up appt in 10 days) Diet: Heart Healthy Addtl Attending Provider Instructions: Patient presented on 03/15 with a left foot wound and found to have osteomyelitis. S/P Left Foot Amputation Transmetatarsal(Left) on 03/16/23 and delayed primary closure on 03/20/[address] Garzon. Intraoperative culture growing MSSA, bacteroides vulgatus, Finegoldia magna PO clindamycin 300 mg QID and PO levofloxacin 750 mg daily 6 weeks Weekly CBC, CMP, CRP Dressing change instructions - 4x4, abd, kerlix, jam changed daily Started on amlodipine 5mg daily for HTN. Started on thiamine and folic acid for ETOH abuse history. Will need follow up with ID and re-establish with PCP -- appointment made with Dr. Espinoza on 04/12/[address] Garzon in 10 days. Pending Studies at Discharge: No Stand-Alone Forms: My [facility] Skilled Items Patient informed of condition?: Yes DNR: No Discharge Level of Care: Acute rehab Communicable Disease: No Discharge Prognosis: Stable Lines: None Urinary Catheter: No Medications and DC Order Prescriptions: New clindamycin HCl 150 mg Capsule 300 mg PO QID 42 Days Qty: 336 0RF levofloxacin 750 mg Tablet 750 mg PO DAILY@1100 42 Days Qty: 42 0RF thiamine HCl (vitamin B1) 100 mg Tablet 100 mg PO QAM Qty: 30 0RF amlodipine [Norvasc] 5 mg Tablet 5 mg PO HS Qty: 30 0RF nicotine [Nicoderm CQ] 21 mg/24 hr Patch 24 Hour 21 mg transdermal QAM Qty: 7 0RF folic acid 1 mg Tablet 1 mg PO QAM Qty: 30 0RF Probiotic 3 billion cell capsule 3,000 mmu cells PO DAILY Qty: 42 0RF Rx Instructions: administer with a meal Discontinued acetaminophen [Tylenol Extra Strength] 500 mg Tablet 1,000 mg PO DIRECTED PRN (Reason: Pain) ibuprofen [Advil] 200 mg Tablet 400 mg PO DIRECTED PRN (Reason: Pain) Discharge Orders: Discharge Order (Routine); Ordered 03/22/23 Ordered By: Mattie Erazo/Other Patient Handouts: Nutrition for Wound Healing Admission Data Admit Date/Time: 03/15/23 17:59 Attending Provider: Emil Xie Admit Provider: Victorino Conte Primary Care Provider: PCP,NO Other Providers: [place] ; [facility] ; [place] ; Saurabh Garzon ; Victorino Conte ; Jose Ramirez ; Walt Conway ; Ruben Minaya I. ; Andrew Jordan II ; Sheri Rose ; Curt Hernández ; John Moon ; Reny Serna Other Interventions: Discharge Summary Assessment (RN) Last Done: 03/22/23 14:15 Supervising Physician Co-Signing Physician Notes Patient seen and examined at bedside. Discussed with above provider. Plan for discharge to [facility] today. Pain is well controlled. He is afebrile in last 48 hours. Antibiotic prescribed as per ID recommendation. Discussed about potential side effect from antibiotics (tendinitis with levofloxacin, and diarrhea/C. difficile with clindamycin) Patient verbalized understanding.
== END 2023-03-22 16:16 | DRG 475 ==
LOC: ED 13:49 → 2N 17:59 → SUATTDRO 17:59 → 2N 20:07 → 3W 03-17 23:35